=== PATIENT | male | born 1990 | race Caucasian/White ===

== ENCOUNTER 2023-05-23 16:43 | Inpatient (IN) ==
--- NOTE | 2023-05-23 17:03 | Emergency Department Note ---
Impression & Plan Acute hypoxemic respiratory failure, Pneumonia, Chest pain, Dyspnea, Acute dehydration ED Provider Note NAME: ЕКАТЕРИНА RIVERO AGE: 32 SEX: M : 1990 ARRIVES VIA: Walk-In INFORMANT: Patient, ED PROVIDER(S): Nicholas Morales MD CHIEF COMPLAINT: Shortness of breath, cough MEDICAL DECISION MAKING: Patient presents due to concern for worsening shortness of breath. The patient also did have some pain with coughing. Patient does not have any evidence of lower extremity edema calf pain or erythema no high risk red flag signs for DVT. IV was established and blood work was obtained. The patient was ordered magnesium DuoNeb steroids and IV fluids. Bio fire also ordered along with a chest x-ray. Patient's blood work shows a normal white count H&H and platelet count. The patient's kidney function is unremarkable. Patient sodium 135. Mild transaminitis with a bilirubin of 1.2 AST and ALT of 54 and 91 respectively. Troponin is not elevated. Urinalysis shows ketones and the patient did receive IV fluids. Bio fire negative. No obvious evidence of DVT on exam. Patient's history and physical exam most consistent with infectious etiology. Given the patient's hypoxia do believe the patient would benefit from admission at this time. I did speak the on-call hospitalist Dr. Butler and the patient was admitted to the medicine service. Critical Care: I have personally spent 45 minutes of critical care time in direct management of this patient. This includes bedside care, interpretation of diagnostic studies, and testing, discussion with consultants, patient, and family members, and other require inpatient management activities. This 45 minutes is in excess of all separately billable procedures. Discussion w/ other healthcare providers: Dr. Butler inpatient medicine service Prior /Outside records reviewed: Reviewed a primary care visit from May 14, 2023. The patient was seen by [facility] and diagnosed with a cough with productive sputum. Patient was to be started on Tessalon Perles Augmentin and Medrol Dosepak. Differential diagnosis: Reactive airway disease, pneumonia, pneumothorax, COPD, CHF, ACS, pulmonary embolism, musculoskeletal, GERD as well as other pathologies were considered. Diagnostics, as interpreted by me: ECG: Sinus tachycardia, rate of 104, normal intervals, normal axis no ST elevations. No significant change for comparison when June 10, 2019. Cardiac monitoring: An order was placed for continuous cardiac monitoring. The monitor shows a rate of 112 with tachycardic and regular rhythm. Patient was placed on pulse oximetry Medical decision rules: Curb 65 score Imaging studies: I informally interpreted the patient's chest x-ray which does not show obvious pneumonia or pneumothorax with formal report to follow. HPI: Patient presents due to concern for shortness of breath. Patient shortness of breath is gotten progressively worse over the last week week and a half. The patient was seen by his outpatient physician and prescribed steroids Augmentin and Tessalon Perles. The patient recently began taking Mucinex as well but does not had any significant improvement in symptoms. The patient does complain of dyspnea on exertion. No leg swelling or calf pain no history of DVT or PE. Patient reports that he does have a pending sleep study. Patient states that prior to this most recent bout of pneumonia the patient has not had steroids in some time but does have a history of asthma. Patient has not been using an inhaler. Patient does complain of some right-sided chest wall pain. Patient was concerned about coughing that may have caused a rib fracture. PAST MEDICAL HISTORY: See Below PAST SURGICAL HISTORY: See Below SOCIAL HISTORY: See Below HOME MEDICATIONS: See Below ALLERGIES: See Below VITALS: See Below PHYSICAL EXAMINATION: GENERAL: NAD, non-toxic. Nasal cannula in place. Wearing glasses EYE EXAM: Normal conjunctiva. PERRL, no anisocoria and EOM's grossly intact w/o pain. OROPHARYNX: Moist mucus membranes, grossly normal dentition. NECK: Supple, no nuchal rigidity, no adenopathy, non-tender. No signs of meningismus. FROM of the neck with good chin to chest and neck extension. No stridor. LUNGS: Wheezing and crackles noted normal chest wall mechanics. Chest: Reproducible right-sided chest wall pain HEART: Tachycardic and regular, no MRG. ABDOMEN: Abdomen soft, non-tender, no masses, no rebound or guarding. BACK: No CVA TTP. SKIN: No rashes and no bruising. UPPER EXTREMITIES: Upper extremities are grossly normal. LOWER EXTREMITIES: Grossly normal, no edema. Negative Homans' sign bilaterally. NEURO EXAM: A&O x3, cranial nerves II-XII grossly intact, normal speech, moves all 4 extremities. 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 History of wisdom tooth extraction Family History Aunt Breast cancer Mother Stroke Family history of reaction to anesthesia difficulty breathing after back surgery Grandmother Stroke Grandfather Stroke Other Diabetes Hypertension Denies family history of Ovarian cancer Prostate cancer Myocardial infarction Colorectal cancer Social History Smoking Status: Current every day smoker Tobacco Type: Cigarettes Cigarettes Per Day: 2-5 a day; Second Hand Exposure: Yes; Do You Dip or Chew Tobacco: No; Hx Alcohol Use: Yes ("a 6 pack of beer a night") Alcohol type: beer Alcohol Intake Frequency: 4 or More x per/Week Hx Substance Use: No Preferred Language: Lao Communication Ability: Effective Communication Ability Comment: has memory difficulties--but can sign own consent Visual Impairment: Limited Hearing Ability: Normal Fire Control Technician B Required: No Beliefs That Will Affect Care: None marital status: Single Current Living Situation: Parent current occupational status: unemployed Feels Safe at Home: Yes Childhood Exposure to Second-Hand Smoke: No Diet: regular caffeine: Yes during the past year weight has: remained stable Dental Care, Regularly: No Physical Activity Frequency: Does not Exercise Seatbelt Use: always Sunscreen Use: No Assistive Devices: Contacts and Glasses Allergies Allergies Allergy/AdvReac Type Severity Reaction Status Date / Time No Known Allergies Allergy Verified 05/23/23 18:01 Home Meds Home Medications Medication Instructions Recorded Confirmed acetaminophen 500 mg tablet 1,000 mg PO Q6H PRN Pain 02/23/21 05/23/23 (Tylenol Extra Strength) ibuprofen 200 mg tablet 400 mg PO Q6H PRN Pain 02/23/21 05/23/23 Previous Rx's Medication Instructions Recorded albuterol sulfate 90 mcg/actuation 2 puff inhalation QID PRN 07/31/21 aerosol inhaler shortness of breath or wheezing #8.5 grams sertraline 100 mg tablet 100 mg PO QPM #90 tabs 12/03/21 atenolol 25 mg tablet 25 mg PO QPM #30 tabs 08/21/22 omeprazole 40 mg capsule,delayed 40 mg PO QPM #90 caps 10/21/22 release amoxicillin 875 mg-potassium 1 tab PO BID #20 tabs 05/14/23 clavulanate 125 mg tablet benzonatate 100 mg capsule 100 mg PO TID PRN cough #30 caps 05/14/23 Results & Data (ED) Vital Signs Vital Signs - 24 hr 05/23/23 16:47 05/23/23 18:13 05/23/23 18:48 Temperature 36.7 C Temperature Source Temporal Artery Scan Pulse Rate 115 H 111 H Pulse Rate [Apical] Pulse Rhythm [Apical] Pulse Strength [Apical] Respiratory Rate 16 Respiratory Effort / Characteristics Non-Labored Spontaneous Respiratory Depth Normal Respiratory Pattern Blood Pressure 128/91 Blood Pressure [Left Arm] Blood Pressure Mean 103 Blood Pressure Mean [Left Arm] Pulse Oximetry 87 L 115 H Oxygen Delivery Method Room Air Nasal Cannula Oxygen Flow Rate 4 Sepsis Recent Fever Within 48 Hours No Sepsis New/Unexplained Change in Mental Status No Sepsis Action Taken by Nursing No Action Required 05/23/23 19:14 05/23/23 20:45 05/23/23 22:14 Temperature Temperature Source Pulse Rate Pulse Rate [Apical] 110 H 104 H 92 H Pulse Rhythm [Apical] Regular Regular Regular Pulse Strength [Apical] Normal Normal Normal Respiratory Rate 18 17 18 Respiratory Effort / Characteristics Non-Labored Spontaneous Non-Labored Spontaneous Non-Labored Spontaneous Respiratory Depth Normal Normal Normal Respiratory Pattern Regular Regular Regular Blood Pressure Blood Pressure [Left Arm] 160/100 H 146/95 H 145/97 H Blood Pressure Mean Blood Pressure Mean [Left Arm] 120 112 113 Pulse Oximetry 94 92 91 Oxygen Delivery Method Nasal Cannula Room Air Nasal Cannula Oxygen Flow Rate 4 4 Sepsis Recent Fever Within 48 Hours Sepsis New/Unexplained Change in Mental Status Sepsis Action Taken by Nursing 05/23/23 22:52 05/24/23 00:00 Temperature Temperature Source Pulse Rate 96 H Pulse Rate [Apical] 85 Pulse Rhythm [Apical] Pulse Strength [Apical] Respiratory Rate 18 Respiratory Effort / Characteristics Respiratory Depth Respiratory Pattern Blood Pressure Blood Pressure [Left Arm] 130/88 Blood Pressure Mean Blood Pressure Mean [Left Arm] 102 Pulse Oximetry 98 Oxygen Delivery Method Nasal Cannula Oxygen Flow Rate 4 Sepsis Recent Fever Within 48 Hours Sepsis New/Unexplained Change in Mental Status Sepsis Action Taken by Alf Medications Current Medication List: was personally reviewed by me Laboratory Data Attestation: I reviewed the patient's lab results. 05/23/23 18:03 05/23/23 18:03 Lab Results 05/23/23 05/23/23 05/23/23 Range/Units 18:03 20:36 Unknown WBC 8.41 (4.8-10.8) K/ul RBC 4.87 (4.70-6.10) M/uL Hgb 15.7 (14.0-18.0) g/dl Hct 45.1 (42.0-52.0) % MCV 92.6 (80.0-100.0) fL MCH 32.2 (25.0-34.0) pg MCHC 34.8 (32.0-36.0) g/dL RDW Std Deviation 44.5 (36.4-46.3) fL RDW Coeff of Doris 13.2 (11.5-14.5) % Plt Count 183 (130-400) K/uL MPV 11.3 (9.4-12.4) fL Immature Gran % (Auto) 0.6 % Neut % (Auto) 75.1 % Lymph % (Auto) 14.0 % Wilkes % (Auto) 7.3 % Eos % (Auto) 2.0 % Baso % (Auto) 1.0 % Neut # (Auto) 6.32 (1.40-6.50) K/uL Lymph # (Auto) 1.18 L (1.20-3.40) K/uL Wilkes # (Auto) 0.61 H (0.11-0.59) K/uL Eos # (Auto) 0.17 (0.00-0.50) K/uL Baso # (Auto) 0.08 (0.00-0.20) K/uL Immature Gran # (Auto) 0.05 (0.01-0.20) K/uL RBC Agglutinates 1+ PT 11.2 (9.0-12.0) Seconds INR 1.0 (0.9-1.1) APTT 26 (21-31) Seconds PTT Ratio 0.9 Sodium 135 L (136-145) mmol/L Potassium 3.7 (3.5-5.1) mmol/L Chloride 101 (98-107) mmol/L Carbon Dioxide 25 (21-32) mmol/L Anion Gap 9 (3-11) BUN 12 (6-23) mg/dl Creatinine 0.82 (0.6-1.4) mg/dl Est Cr Clr Drug Dosing 153.0 ml/min Est GFR ( Amer) 133.7 ml/min Est GFR (Non-Af Amer) 115.4 ml/min BUN/Creatinine Ratio 14.6 (10-20) Glucose 128 H (70-99(Fasting)) mg/dl Calcium 9.5 (8.6-10.3) mg/dl Magnesium 2.2 (1.7-2.4) mg/dl Total Bilirubin 1.2 H (0.2-1.0) mg/dl AST 54 H (13-39) U/L ALT 91 H (7-52) U/L Alkaline Phosphatase 87 (34-104) U/L Troponin I High Sens 4.1 (0-20) pg/ml B-Natriuretic Peptide 11 (0-100) pg/ml Total Protein 7.6 (6.0-8.3) gm/dl Albumin 4.0 (3.4-5.0) gm/dl Globulin 3.6 (2.5-4.0) gm/dl Albumin/Globulin Ratio 1.1 (0.9-2) Procalcitonin 0.07 (0-0.5) ng/ml Urine Color Yellow Urine Appearance Clear (Clear) Urine pH 5.5 (4.5-7.5) Ur Specific [place] 1.019 (1.000-1.030) Urine Protein Negative (Negative) Urine Glucose (UA) Negative (Negative) Urine Ketones 1+ H (Negative) Urine Blood Negative (Negative) Urine Nitrite Negative (Negative) Urine Bilirubin Negative (Negative) Urine Urobilinogen Negative (Negative) Ur Leukocyte Esterase Negative (Negative) Adenovirus (PCR) Not Detected (NotDetected) B. pertussis DNA (PCR) Not Detected (NotDetected) B.parapertussis DNA PCR Not Detected (NotDetected) C. pneumoniae DNA (PCR) Not Detected (NotDetected) Coronavirus OC43 (PCR) Not Detected (NotDetected) Coronavirus HKU1 (PCR) Not Detected (NotDetected) Coronavirus 229E (PCR) Not Detected (NotDetected) SARS-CoV-2 (PCR) Not Detected (NotDetected) Coronavirus NL63 (PCR) Not Detected (NotDetected) Human Metapneumovir PCR Not Detected (NotDetected) Influenza Type A (PCR) Not Detected (NotDetected) Influenza Type B (PCR) Not Detected (NotDetected) M. pneumoniae (PCR) Not Detected (NotDetected) Parainfluenza 1 (PCR) Not Detected (NotDetected) Parainfluenza 2 (PCR) Not Detected (NotDetected) Parainfluenza 3 (PCR) Not Detected (NotDetected) Parainfluenza 4 (PCR) Not Detected (NotDetected) RSV (PCR) Not Detected (NotDetected) Entero/Rhino (PCR) Not Detected (NotDetected) Administered Medications Discontinued Medications Albuterol (Albut/Ipratrop 3mg/0.5mg Neb 3 Ml Vial) 12 ml INH ONE STA Stop: 05/23/23 17:18 Last Admin: 05/23/23 18:05 Dose: 12 ml Documented By: YAMILE Amoxicillin/Clavulanate Potassium (Amoxicillin/Clavulanate 875 Mg Tab) 1 tab PO NOW ONE; Protocol Stop: 05/23/23 21:28 Last Admin: 05/23/23 21:59 Dose: 1 tab Documented By: DONNIE Atenolol (Atenolol 25 Mg Tablet) 25 mg PO NOW ONE Stop: 05/23/23 19:54 Last Admin: 05/23/23 20:29 Dose: 25 mg Documented By: DONNIE Hydromorphone HCl (Hydromorphone Inj 0.5 Mg/0.5 Ml Syr) 0.5 mg IV NOW STA Stop: 05/23/23 20:19 Last Admin: 05/23/23 20:42 Dose: 0.5 mg Documented By: DONNIE Sodium Chloride (Nss) 1,000 mls @ 999 mls/hr IV .Q1H1M JUJU Stop: 05/23/23 18:30 Last Infusion: 05/23/23 19:20 Dose: Infused Documented By: Admin: 05/23/23 18:11 Dose: 999 mls/hr Documented By: DONNIE Magnesium Sulfate/Dextrose (Magnesium Sulfate / D5w) 1 gm in 100 mls @ 300 mls/hr IV Q20M JUJU Stop: 05/23/23 18:09 Last Infusion: 05/23/23 20:31 Dose: Infused Documented By: Admin: 05/23/23 19:20 Dose: 300 mls/hr Documented By: Infusion: 05/23/23 18:29 Dose: Infused Documented By: Admin: 05/23/23 18:09 Dose: 300 mls/hr Documented By: DONNIE Ioversol (Optiray 320 125ml) 116 ml IV ONCE ONE Stop: 05/23/23 21:51 Last Admin: 05/23/23 21:50 Dose: 116 ml Documented By: SALVADOR Ketorolac Tromethamine (Ketorolac Tromethamine 15 Mg/Ml Vial) 10 mg IV NOW ONE Stop: 05/23/23 19:13 Last Admin: 05/23/23 19:16 Dose: 10 mg Documented By: DONNIE Lidocaine (Lidocaine 5% 1 Patch) 1 patch TD NOW STA Stop: 05/23/23 20:21 Last Admin: 05/23/23 20:41 Dose: 1 patch Documented By: DONNIE Methylprednisolone (Methylprednisolone 125 Mg/2 Ml Vial) 125 mg IV NOW STA Stop: 05/23/23 17:18 Last Admin: 05/23/23 18:09 Dose: 125 mg Documented By: DONNIE Sertraline HCl (Sertraline Hcl 100 Mg Tablet) 100 mg PO NOW ONE Stop: 05/23/23 19:55 Last Admin: 05/23/23 20:29 Dose: 100 mg Documented By: DONNIE Imaging Data Radiologist's Impression: Chest X-Ray 05/23/23 17:17 XR chest 1V portable HISTORY: 32 years-old Male Dyspnea acute shortness of breath COMPARISON: 05/14/2023 TECHNIQUE: AP view of the chest FINDINGS: Cardiomediastinal and hilar silhouettes are unchanged. No pneumothorax, pleural effusion or lobar airspace consolidation. Previously questioned right basilar opacities are not definitively seen. The bones appear grossly intact. IMPRESSION: No acute process of the chest. ACT 112: Negative or not required by law. The above report was generated using voice recognition software. It may contain grammatical, syntax or spelling errors. Electronically signed by: Paul Higuera M.D. 05/23/2023 5:42 PM Chest CTA 05/23/23 21:07 Exam(s): CTA CHEST IV Amt: 116ML OPTIRAY 320 EXAM: CT Angiography Chest With Intravenous Contrast CLINICAL HISTORY: Reason for exam: PE. TECHNIQUE: Axial computed tomographic angiography images of the chest with intravenous contrast. Automated exposure control was utilized for the study. A dose lowering technique was utilized adhering to the principles of ALARA. MIP reconstructed images were created and reviewed. COMPARISON: No relevant prior studies available. FINDINGS: Pulmonary arteries: Adequate pulmonary artery opacification. Normal caliber main pulmonary artery. No evidence of acute pulmonary embolism. Aorta: No acute findings. No thoracic aortic aneurysm or dissection. Lungs: Bilateral bronchial wall thickening. Widespread centrilobular nodules and tree-in-bud opacities in the right lower lobe. Multiple subpleural pulmonary micronodules measuring 2 mm in the right middle lobe (series 2, image 35), 5 mm in the left lower lobe (series 2, image 46), 3 mm in the left lower lobe (series 2, image 60); per Fleischner Society guidelines, no follow-up is required. Subsegmental atelectasis at the bilateral lung bases. No pulmonary mass. Pleural space: Unremarkable. No pleural effusion or pneumothorax. Heart: Unremarkable. No cardiomegaly. No significant pericardial effusion. No evidence of RV dysfunction. Bones/joints: Acute nondisplaced fracture lateral right rib 7. Osseous structures otherwise intact. No dislocation. Soft tissues: Unremarkable. Lymph nodes: Unremarkable. No enlarged lymph nodes. IMPRESSION: 1. Extensive centrilobular nodules and tree-in-bud opacities in the right lower lobe consistent with infectious or inflammatory bronchiolitis/small airways disease. 2. Acute nondisplaced fracture lateral right rib 7. 3. No evidence of acute pulmonary embolism. Electronically signed by: Patricio Flores M.D. 05/23/23 23:09 PM Discharge Plan Visit Data Chief Complaint: Flank Pain Stated Complaint: PNEMONIA, SHARP RT FLANK PAIN, BACK PAIN, RIB PAIN ED Provider: Nicholas Morales Discharge Problem: Acute hypoxemic respiratory failure, Pneumonia, Chest pain, Dyspnea, Acute dehydration Forms Stand Alone Forms: [employer] Prescriptions Prescriptions: No Action sertraline 100 mg tablet 100 mg PO QPM Qty: 90 3RF atenolol 25 mg tablet 25 mg PO QPM Qty: 30 0RF omeprazole 40 mg capsule,delayed release(DR/EC) 40 mg PO QPM Qty: 90 1RF amoxicillin-pot clavulanate 875-125 mg tablet 1 tab PO BID Qty: 20 0RF Rx Instructions: STARTED 05/14/23 FOR 10 DAYS benzonatate 100 mg capsule 100 mg PO TID PRN (Reason: cough) Qty: 30 1RF albuterol sulfate 90 mcg/actuation HFA aerosol inhaler 2 puff inhalation QID PRN (Reason: shortness of breath or wheezing) Qty: 8.5 3RF acetaminophen [Tylenol Extra Strength] 500 mg Tablet 1,000 mg PO Q6H PRN (Reason: Pain) ibuprofen 200 mg Tablet 400 mg PO Q6H PRN (Reason: Pain) Referrals Referrals: Clemente Cui MD [Primary Care Provider] - Discharge Problem: Pneumonia Qualifiers: Pneumonia type: due to unspecified organism Laterality: right Lung location: l ower lobe of lung Qualified Code(s): J18.9 - Pneumonia, unspecified organism Chest pain Qualifiers: Chest pain type: unspecified Qualified Code(s): R07.9 - Chest pain, unspecified Dyspnea Qualifiers: Dyspnea type: shortness of breath Qualified Code(s): R06.02 - Shortness of breath
[2023-05-23] MEDS ORDERED: methylPREDNISolone 125 MG/2 ML VIAL IV STA (17:17)
[2023-05-23] MEDS ORDERED: ALBUT/IPRATROP 3MG/0.5MG NEB 3 ML VIAL INH STA (17:17)
[2023-05-23] MEDS ORDERED: SODIUM CHLORIDE 0.9% 1,000 ML IV SCH (17:30)
--- NOTE | 2023-05-23 17:43 | XRay Report ---
XR chest 1V portable HISTORY: 32 years-old Male Dyspnea acute shortness of breath COMPARISON: 05/14/2023 TECHNIQUE: AP view of the chest FINDINGS: Cardiomediastinal and hilar silhouettes are unchanged. No pneumothorax, pleural effusion or lobar air space consolidation. Previously questioned right basilar opacities are not definitively seen. The bon es appear grossly intact. IMPRESSION: No acute process of the chest. ACT 112: Negative or not required by law. The above report was generated using voice recognition software. It may contain grammatical, syntax o r spelling errors. Electronically signed by: Paul Higuera M.D. 05/23/2023 5:42 PM
[2023-05-23] MEDS: MAGNESIUM SULFATE / D5W 1 GM/100 ML BAG IV SCH ×2 (18:09→19:20)
[2023-05-23 18:50] LABS: Albumin Globulin Ratio 1.1 (0.9-2); BUN Creatinine Ratio 14.6 (10-20); Bilirubin,Total 1.2 mg/dl (0.2-1.0); Calcium 9.5 mg/dl (8.6-10.3); Est GFR (African American) 133.7 ml/min; Est GFR (Non-African American) 115.4 ml/min; Globulin 3.6 gm/dl (2.5-4.0); Magnesium 2.2 mg/dl (1.7-2.4); Potassium 3.7 mmol/L (3.5-5.1); Total Protein 7.6 gm/dl (6.0-8.3)
[2023-05-23 18:54] LABS: Troponin I High Sensitivity 4.1 pg/ml (0-20)
[2023-05-23 18:59] LABS: Partial Thromboplastin Ratio 0.9; Partial Thromboplastin Time 26 Seconds (21-31); Prothrombin Time 11.2 Seconds (9.0-12.0)
[2023-05-23] MEDS ORDERED: KETOROLAC TROMETHAMINE 15 MG/ML VIAL IV ONE (19:12)
--- NOTE | 2023-05-23 19:19 | History & Physical Report ---
Date of Service May 23, 2023 Assessment & Plan (1) Shortness of breath: Plan: Worsening SOB and productive cough since 04/20; Mother had COVID in April; negative home COVID test in April, however symptoms have lingered Outpatient CXR on 05/14 showed PNA; patient was given prednisone taper and Augmentin 875-125 mg p.o. BID x 10 days Coughing on 05/23 led to severe, acute onset of right-sided flank pain Hypoxic on ED arrival 87%; SpO2 93% on 4L NC CXR today showed NAF; bones grossly intact No leukocytosis; afebrile BioFire negative Procalcitonin WNL BNP WNL Chest CTA revealed no evidence of pulmonary embolism, but noted: Acute non-displaced fracture lateral right rib 7 Extensive centrilobualr nodules and tree-in-bud opacities in the RLL consistent with infectious or inflammatory airway disease Continuous telemetry monitoring Continuous pulse oximetry Supplemental oxygen as needed to maintain SpO2 >94% Patient was set to finish course of Augmentin 875-125mg p.o. BID on 05/23; last dose in the ED Given chest CTA, will continue empiric abx w/ IV Ceftriaxone and Azithromycin DuoNeb 3 mL QIDR for expiratory wheezing Continue benzonatate TID as needed for cough Promote good pulmonary hygiene with incentive spirometry and flutter valve QID Acetaminophen p.o. as needed for pain/fever Dilaudid IV q4h as needed for breakthrough pain Apply lidocaine 5% patch to right rib cage daily A.m. CBC, BMP, Mag, LFTs (2) Right flank pain: Plan: Developed after coughing on 05/23 Patient came to the ED thinking he might have cracked a rib Pain management (as above) (3) Elevated transaminase level: Plan: AST mildly elevated at 54 ALT mildly elevated at 91 Alk phos WNL PT/INR WNL ?Viral; repeat LFTs (4) Asthma: Plan: DuoNeb (as above) (5) Depression with anxiety: Plan: Continue sertraline QPM (6) Hypertension: Plan: Continue atenolol QPM (7) Esophageal reflux: Plan: Continue omeprazole, or Protonix equivalent QPM Plan Disposition: Admit to [facility] Full code Regular diet VTE PPx: Lovenox 40mg SQ q24h History of Present Illness Chief Complaint: SOB, R flank/rib pain Primary Care Provider: Clemente Cui MD Ifeanyi is a 32-year-old male with PMH of asthma, HTN, depression, anxiety, and esophageal reflux. He presented for right flank pain on 05/23 and worsening SOB over the past month. Patient's mother is at the bedside and provides additional history. Mom tested positive for COVID on 04/16. Per mom, the patient deve loped cough and cold symptoms around Bailey time, but tested negative for COVID at this time. His symptoms continue to linger. On 05/14, patient had an outpatient CXR that showed pneumonia, and he was started on a prednisone taper and Augmentin 875-125mg x 10 days. He has been using a pulse ox at home, which has been measuring low 90% range. Patient does not use supplemental oxygen at home. He has been taking his mother's albuterol nebulizer 23 times per day, which she reports helps. He is also been using Mucinex dm for cough. Breathing is worse when he lies flat. Of note, the patient developed right-sided back and flank pain on 05/22, then heard a "pop" while coughing on 05/23 and thought he might have cracked a rib. No radiation up the back or down to the legs. Patient reports that the right rib pain is worse with coughing. He took ibuprofen for it yesterday, but nothing today. He did not take any of his regular medications today; no recent change in medications. He endorses alcohol use, but nothing within the past week. He also endorses mild tobacco cigarette smoking; 1-2 cigarettes per day on occasion. Patient is mildly tachycardic at 110 bpm, with SpO2 94% on 4L NC at time of admission. ED course: DuoNeb 12 mL Magnesium sulfate 1 g IV NSS 1000 mL IV Solu-Medrol 125 mg IV ROS: Patient endorses productive cough (clear sputum production), body aches, ZIMMERMAN, ri ght flank/rib pain, and diarrhea (after starting Augmentin). Patient denies fever, chills, night-sweats, rashes, tick bites, chest pain, chest palpitations, SOB at rest, hemoptysis, pleuritic CP, abdominal pain, N/V, dysuria, burning with urination, or numbness/tingling/redness/pain in the legs or arms. Allergies Allergy/AdvReac Type Severity Reaction Status Date / Time No Known Allergies Allergy Verified 05/23/23 18:01 Home Medications Medication Instructions Recorded Confirmed Type acetaminophen 500 mg tablet 1,000 mg PO Q6H PRN Pain 02/23/21 05/23/23 History (Tylenol Extra Strength) ibuprofen 200 mg tablet 400 mg PO Q6H PRN Pain 02/23/21 05/23/23 History albuterol sulfate 90 mcg/actuation 2 puff inhalation QID PRN 07/31/21 05/23/23 Rx aerosol inhaler shortness of breath or wheezing #8.5 grams sertraline 100 mg tablet 100 mg PO QPM #90 tabs 12/03/21 05/23/23 Rx atenolol 25 mg tablet 25 mg PO QPM #30 tabs 08/21/22 05/23/23 Rx omeprazole 40 mg capsule,delayed 40 mg PO QPM #90 caps 10/21/22 05/23/23 Rx release amoxicillin 875 mg-potassium 1 tab PO BID #20 tabs 05/14/23 05/23/23 Rx clavulanate 125 mg tablet benzonatate 100 mg capsule 100 mg PO TID PRN cough #30 caps 05/14/23 05/23/23 Rx Past Med/Surg History Medical History (Updated 05/23/23 @ 21:17 by Christophe Brown PA-C) Asthma Memory difficulties Color blindness Tachycardia History of COVID-19 diagnosed 04/2021--no issues now Wheezing inhaler prn Hypertension Fatty liver Hemorrhoids Adjustment disorder with mixed anxiety and depressed mood Esophageal reflux Surgical History 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 History of wisdom tooth extraction Family History Aunt Breast cancer Mother Stroke Family history of reaction to anesthesia Grandmother Stroke Grandfather Stroke Other Diabetes Hypertension Denies family history of Ovarian cancer Prostate cancer Myocardial infarction Colorectal cancer Social History Smoking Status: Current every day smoker Tobacco Type: Cigarettes Cigarettes Per Day: 2-5 a day; Second Hand Exposure: Yes; Do You Dip or Chew Tobacco: No; Hx Alcohol Use: Yes ("a 6 pack of beer a night") Alcohol type: beer Alcohol Intake Frequency: 4 or More x per/Week Hx Substance Use: No Preferred Language: Gibralt[place] Communication Ability: Effective Communication Ability Comment: has memory difficulties--but can sign own consent Visual Impairment: Limited Hearing Ability: Normal Support Manager Required: No Beliefs That Will Affect Care: None marital status: Single Current Living Situation: Parent current occupational status: unemployed Feels Safe at Home: Yes Childhood Exposure to Second-Hand Smoke: No Diet: regular caffeine: Yes during the past year weight has: remained stable Dental Care, Regularly: No Physical Activity Frequency: Does not Exercise Seatbelt Use: always Sunscreen Use: No Assistive Devices: Contacts and Glasses Review of Systems Review of Systems: See HPI above Physical Exam Physical Exam: General: Acute right flank pain and mild respiratory distress; flank pain is exacerbated by any kind of movement; patient is cooperative; SpO2 93% on 4L NC HEENT: normocephalic, atraumatic; no scleral icterus; PERRLA w/ EOMs intact; moist mucus membrane; vision and hearing grossly intact Neck: supple; no lymphadenopathy; trachea midline Skin: warm, without signs of tenting; diaphoretic; no cyanosis; no rashes, bruising, lesions, or erythema noted CV: chest wall NTP; RRR; S1/S2 normal; no murmurs/rubs/gallops; pulses intact and symmetric at radial, DP, and PT Lungs: Mild respiratory distress; symmetrical chest wall expansion; expiratory wheezing across all lung pantoja, but worse on the left ABD: Soft; right flank is TTP just under the anterior lateral rib cage; no signs of bruising; BS present; no rebound/guarding; distention secondary to body habitus MSK: no tics or fasciculations; no edema noted in the LEs b/l, nonerythematous Neuro: A&Ox3; normal mood and affect; fluent speech; no focal deficits; sensation grossly intact in the LEs b/l Results & Data Results & Data Vital Signs (Past 12 Hours) Vital Signs Temp Pulse Pulse Resp BP BP Pulse Ox 05/23/23 19:14 110 H 18 160/100 H 94 05/23/23 18:48 111 H 05/23/23 18:13 115 H 05/23/23 16:47 36.7 C 115 H 16 128/91 87 L O2 Del Method O2 Flow Rate 05/23/23 19:14 Nasal Cannula 4 05/23/23 18:48 05/23/23 18:13 Nasal Cannula 4 05/23/23 16:47 Room Air Laboratory Results Abnormal lab results 05/23/23 Range/Units 18:03 Sodium 135 L (136-145) mmol/L Glucose 128 H (70-99(Fasting)) mg/dl Total Bilirubin 1.2 H (0.2-1.0) mg/dl AST 54 H (13-39) U/L ALT 91 H (7-52) U/L Diagnostic Findings Chest X-Ray 05/23/23 17:17 XR chest 1V portable HISTORY: 32 years-old Male Dyspnea acute shortness of breath COMPARISON: 05/14/2023 TECHNIQUE: AP view of the chest FINDINGS: Cardiomediastinal and hilar silhouettes are unchanged. No pneumothorax, pleural effusion or lobar airspace consolidation. Previously questioned right basilar opacities are not definitively seen. The bones appear grossly intact. IMPRESSION: No acute process of the chest. ACT 112: Negative or not required by law. The above report was generated using voice recognition software. It may contain grammatical, syntax or spelling errors. Electronically signed by: Paul Higuera M.D. 05/23/2023 5:42 PM Exam(s): CTA CHEST IV Amt: 116ML OPTIRAY 320 EXAM: CT Angiography Chest With Intravenous Contrast CLINICAL HISTORY: Reason for exam: PE. TECHNIQUE: Axial computed tomographic angiography images of the chest with intravenous contrast. Automated exposure control was utilized for the study. A dose lowering technique was utilized adhering to the principles of ALARA. MIP reconstructed images were created and reviewed. COMPARISON: No relevant prior studies available. FINDINGS: Pulmonary arteries: Adequate pulmonary artery opacification. Normal caliber main pulmonary artery. No evidence of acute pulmonary embolism. Aorta: No acute findings. No thoracic aortic aneurysm or dissection. Lungs: Bilateral bronchial wall thickening. Widespread centrilobular nodules and tree-in-bud opacities in the right lower lobe. Multiple subpleural pulmonary micronodules measuring 2 mm in the right middle lobe (series 2, image 35), 5 mm in the left lower lobe (series 2, image 46), 3 mm in the left lower lobe (series 2, image 60); per Fleischner Society guidelines, no follow-up is required. Subsegmental atelectasis at the bilateral lung bases. No pulmonary mass. Pleural space: Unremarkable. No pleural effusion or pneumothorax. Heart: Unremarkable. No cardiomegaly. No significant pericardial effusion. No evidence of RV dysfunction. Bones/joints: Acute nondisplaced fracture lateral right rib 7. Osseous structures otherwise intact. No dislocation. Soft tissues: Unremarkable. Lymph nodes: Unremarkable. No enlarged lymph nodes. IMPRESSION: 1. Extensive centrilobular nodules and tree-in-bud opacities in the right lower lobe consistent with infectious or inflammatory bronchiolitis/small airways disease. 2. Acute nondisplaced fracture lateral right rib 7. 3. No evidence of acute pulmonary embolism. Electronically signed by: Patricio Flores M.D. 05/23/23 23:09 PM Dictated: 05/23/232308 Transcribed: 05/23/232308 Code Status & VTE Plan Code Status Full code VTE Prophylaxis Plan VTE Prophylaxis will be ordered: Yes Supervising Physician Co-Signing Physician Notes Patient seen and examined, chart reviewed, case discussed with CLAY Brown and I agree with the assessment and plan as above. In brief, patient is a 32yo male with history of asthma, HTN, depression and GERD presenting with right sided pain and ongoing cough/SOB. Patient's symptoms began around mid-April after his mother had Covid-19. Patient took a home Covid test which was NEGATIVE. He has had ongoing cough and congestion as well as fatigue. He was seen by his PCP on 05/14/23 and started on Augmentin and a Prednisone taper. Developed severe right sided back/flank pain on 05/22 after coughing. Reports feeling a "pop". Patient hypoxic in the ER. Presently on 4L NC saturating 91% Ill in appearance, answering questions appropriately SKin - warm, dry, intact, no rashes or lesions HEENT - MMM, Neck supple Heart - +S1/S2, regular, tachycardic, no m/r/g Lungs - +Crackles in RLL, mild end-expiratory wheezing. Severe tenderness to palpation right side. No crepitus Abd - +BS, soft, NT/ND Ext - warm, well perfused Labs and images reviewed CXR with no obvious PNA CT chest with RLL PNA and rib fracture Assessment/Plan -Will continue antibiotics for now - Ceftriaxone and Azithromycin. Patient has completed a course of Augmentin. He has a normal WBC count and procalcitonin -Duonebs and Albuterol -Pain control for rib fracture -Remainder as above PG Care Time/CCT Total # of Minutes Spent Total Time Spent with Patient: Total time spent is greater than 50% in coordination of care (as documented) at patient's floor/unit and/or counseling patient: Coding [place] [address] INT INP/OBS CARE 3/75MIN Patient Type Established Medical Decision Making High Complexity Diagnoses Shortness of breath R06.02 Right flank pain R10.9 Elevated transaminase level R74.01 Asthma J45.909 Depression with anxiety F41.8 Hypertension I10 Esophageal reflux K21.9
[2023-05-23 19:23] LABS: Adenovirus PCR Not Detected (NotDetected); Bordetella parapertussis PCR Not Detected (NotDetected); Bordetella pertussis PCR Not Detected (NotDetected); Chlamydia pneumoniae PCR Not Detected (NotDetected); Coronavirus 229E PCR Not Detected (NotDetected); Coronavirus CoV-2 (COVID19)PCR Not Detected (NotDetected); Coronavirus HKU1 PCR Not Detected (NotDetected); Coronavirus NL63 PCR Not Detected (NotDetected); Coronavirus OC43PCR Not Detected (NotDetected); Human Metapneumovirus PCR Not Detected (NotDetected); Influenza A PCR Not Detected (NotDetected); Influenza B PCR Not Detected (NotDetected); Mycoplasma pneumoniae PCR Not Detected (NotDetected); Parainfluenza Virus 1 PCR Not Detected (NotDetected); Parainfluenza Virus 2 PCR Not Detected (NotDetected); Parainfluenza Virus 3 PCR Not Detected (NotDetected); Parainfluenza Virus 4 PCR Not Detected (NotDetected); Respiratory Syncytial VirusPCR Not Detected (NotDetected); Rhinovirus/Enterovirus PCR Not Detected (NotDetected)
[2023-05-23 19:27] LABS: Hematocrit (blood only) 45.1 % (42.0-52.0); Hemoglobin 15.7 g/dl (14.0-18.0); Mean Corpuscular Hemoglobin 32.2 pg (25.0-34.0); Mean Corpuscular Hgb Conc 34.8 g/dL (32.0-36.0); Mean Corpuscular Volume 92.6 fL (80.0-100.0); Mean Platelet Volume 11.3 fL (9.4-12.4); Platelet Count 183 K/uL (130-400); RDW Coefficient of Variation 13.2 % (11.5-14.5); RDW Standard Deviation 44.5 fL (36.4-46.3); Red Blood Count 4.87 M/uL (4.70-6.10); White Blood Count 8.41 K/ul (4.8-10.8)
[2023-05-23 19:28] LABS: Agglutinated RBC 1+; Basophils # (auto) 0.08 K/uL (0.00-0.20); Eosinophils # (auto) 0.17 K/uL (0.00-0.50); Immature Granulocytes # (auto) 0.05 K/uL (0.01-0.20); Immature Granulocytes % (auto) 0.6 %; Lymphocytes # (auto) 1.18 K/uL (1.20-3.40); Monocytes # (auto) 0.61 K/uL (0.11-0.59); Monocytes % (auto) 7.3 %; Neutrophils # (auto) 6.32 K/uL (1.40-6.50); Neutrophils % (auto) 75.1 %
[2023-05-23] MEDS ORDERED: ATENOLOL 25 MG TABLET PO ONE (19:53)
[2023-05-23] MEDS ORDERED: SERTRALINE HCL 100 MG TABLET PO ONE (19:54)
[2023-05-23 20:08] LABS: Appearance Urine Clear (Clear); Bilirubin Urine Negative (Negative); Blood Urine Negative (Negative); Color Urine Yellow; Glucose Urine UA Negative (Negative); Ketones Urine 1+ (Negative); Leukocyte Esterase Urine Negative (Negative); Nitrite Urine Negative (Negative); Protein Urine Negative (Negative); Specific Gravity Urine 1.019 (1.000-1.030); Urobilinogen Urine Negative (Negative); pH Urine 5.5 (4.5-7.5)
[2023-05-23] MEDS ORDERED: HYDROmorphone INJ 0.5 MG/0.5 ML SYR IV STA (20:18)
[2023-05-23] MEDS ORDERED: LIDOCAINE 5% 1 PATCH TD STA (20:20)
[2023-05-23] MEDS ORDERED: AMOXICILLIN/CLAVULANATE 875 MG TAB PO ONE (21:27)
[2023-05-23] MEDS ORDERED: OPTIRAY 320 125ml IV ONE (21:50)
--- NOTE | 2023-05-23 23:10 | CT Scan Report ---
Exam(s): CTA CHEST IV Amt: 116ML OPTIRAY 320 EXAM: CT Angiography Chest With Intravenous Contrast CLINICAL HISTORY: Reason for exam: PE. TECHNIQUE: Axial computed tomographic angiography images of the chest with intravenous contrast. Automated exposure control was utilized for the study. A dose lowering technique was utilized adhering to the principles of ALARA. MIP reconstructed images were created and reviewed. COMPARISON: No relevant prior studies available. FINDINGS: Pulmonary arteries: Adequate pulmonary artery opacification. Normal caliber main pulmonary artery. No evidence of acute pulmonary embolism. Aorta: No acute findings. No thoracic aortic aneurysm or dissection. Lungs: Bilateral bronchial wall thickening. Widespread centrilobular nodules and tree-in-bud opacities in the right lower lobe. Multiple subpleural pulmonary micronodules measuring 2 mm in the right middle lobe (series 2, image 35), 5 mm in the left lower lobe (series 2, image 46), 3 mm in the left lower lobe (series 2, image 60); per Fleischner Society guidelines, no follow-up is required. Subsegmental atelectasis at the bilateral lung bases. No pulmonary mass. Pleural space: Unremarkable. No pleural effusion or pneumothorax. Heart: Unremarkable. No cardiomegaly. No significant pericardial effusion. No evidence of RV dysfunction. Bones/joints: Acute nondisplaced fracture lateral right rib 7. Osseous structures otherwise intact. No dislocation. Soft tissues: Unremarkable. Lymph nodes: Unremarkable. No enlarged lymph nodes. IMPRESSION: 1. Extensive centrilobular nodules and tree-in-bud opacities in the right lower lobe consistent with infectious or inflammatory bronchiolitis/small airways disease. 2. Acute nondisplaced fracture lateral right rib 7. 3. No evidence of acute pulmonary embolism. Electronically signed by: Patricio Flores M.D. 05/23/23 23:09 PM
[2023-05-24] MEDS ORDERED: BENZONATATE 100 MG CAPSULE PO PRN (01:28)
[2023-05-24] MEDS ORDERED: AZITHROMYCIN 500 MG in DEXTROSE 5% 250 ML IV STA (01:28)
[2023-05-24] MEDS ORDERED: ACETAMINOPHEN 325 MG TAB PO PRN (01:28)
[2023-05-24] MEDS ORDERED: ALBUTEROL 0.5% NEB SOLN 2.5 MG/0.5 ML VIAL NEB PRN (01:28)
[2023-05-24] MEDS ORDERED: ONDANSETRON INJ 2 MG/ML 2 ML VIAL IV PRN (01:28)
[2023-05-24] MEDS ORDERED: HYDROmorphone INJ 1 MG/ML SYRINGE IV PRN (01:28)
[2023-05-24] MEDS: HYDROmorphone INJ 0.5 MG/0.5 ML SYR IV PRN ×2 (02:14→08:18)
[2023-05-24] MEDS: PANTOprazole 40 MG TAB PO SCH ×2 (02:51→21:08)
[2023-05-24] MEDS: cefTRIAXone SODIUM 2,000 MG in DEXTROSE 5 % MINI-B 50 ML IV SCH (02:51)
--- NOTE | 2023-05-24 07:07 | Electrocardiogram Report ---
Test Reason : Blood Pressure : / mmHG Vent. Rate : 104 BPM Atrial Rate : 104 BPM P-R Int : 164 ms QRS Dur : 082 ms QT Int : 330 ms P-R-T Axes : 035 008 040 degrees QTc Int : 433 ms Sinus tachycardia Nonspecific T wave abnormality Abnormal ECG When compared with ECG of 10-JUN-2019 20:56, No significant change was found Confirmed by Clemente Castano ([id number]) on 05/24/2023 7:07:21 AM Referred By: REFERRED SELF Confirmed By:Dale Castano
[2023-05-24] MEDS: ALBUT/IPRATROP 3MG/0.5MG NEB 3 ML VIAL NEB SCH ×4 (07:27→19:27)
[2023-05-24] MEDS: ENOXAPARIN INJ 40 MG/0.4 ML SYR SQ SCH (08:19)
[2023-05-24 09:57] LABS: Basophils # (auto) 0.02 K/uL (0.00-0.20); Basophils % (auto) 0.2 %; Hematocrit (blood only) 43.7 % (42.0-52.0); Hemoglobin 15.8 g/dl (14.0-18.0); Immature Granulocytes # (auto) 0.08 K/uL (0.01-0.20); Immature Granulocytes % (auto) 0.6 %; Lymphocytes # (auto) 0.91 K/uL (1.20-3.40); Lymphocytes % (auto) 7.4 %; Mean Corpuscular Hemoglobin 34.2 pg (25.0-34.0); Mean Corpuscular Hgb Conc 36.2 g/dL (32.0-36.0); Mean Corpuscular Volume 94.6 fL (80.0-100.0); Monocytes # (auto) 0.43 K/uL (0.11-0.59); Monocytes % (auto) 3.5 %; Neutrophils # (auto) 10.91 K/uL (1.40-6.50); Neutrophils % (auto) 88.3 %; Platelet Count 233 K/uL (130-400); RDW Coefficient of Variation 13.2 % (11.5-14.5); RDW Standard Deviation 44.4 fL (36.4-46.3); Red Blood Count 4.62 M/uL (4.70-6.10); White Blood Count 12.35 K/ul (4.8-10.8)
[2023-05-24] MEDS: guaiFENesin 600 MG TABCR PO SCH ×2 (10:02→21:07)
[2023-05-24] MEDS: LIDOCAINE 5% 1 PATCH TD SCH (10:03)
[2023-05-24 10:08] LABS: Albumin Level 4.4 gm/dl (3.4-5.0); BUN Creatinine Ratio 12.5 (10-20); Bilirubin Direct 0.2 mg/dl (0-0.2); Bilirubin,Total 0.8 mg/dl (0.2-1.0); Calcium 9.5 mg/dl (8.6-10.3); Creatinine Clr Calc Pharmacy 193.9 ml/min; Est GFR (African American) 148.1 ml/min; Est GFR (Non-African American) 127.7 ml/min; Magnesium 2.6 mg/dl (1.7-2.4)
[2023-05-24] MEDS ORDERED: HYDROmorphone INJ 0.5 MG/0.5 ML SYR IV PRN (14:47)
--- NOTE | 2023-05-24 14:49 | Hospitalist Progress Note ---
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, typically around locker rooms/pool/etc) send sputum cx resp biofire neg - noted cont NC O2 and supportive care (2) Fracture of rib: Plan: #7 on right likely happened following a coughing spell cont dilaudid prn add lidoderm add toradol 30mg IV q6h x 4 doses check 25-OH vit D level am (3) Elevated transaminase level: Plan: AST mildly elevated at 54 - now normal ALT mildly elevated at 91 - now in the 70s Alk phos WNL PT/INR WNL h/o abnormal LFTs in the past per old labs h/o fatty liver trend (4) Asthma: Plan: cont duonebs qid scheduled cont flutter & IS he mentions he uses albuterol 2-3 x's each week on a typical week should be on a controller agent consider inhaled corticosteroid consider PO prednisone if any significant bronchospastic component occurs while here (5) Depression with anxiety: Plan: Continue sertraline (6) Hypertension: Plan: Continue atenolol (7) Esophageal reflux: Plan: Cont ppi Plan VTE PPx: Lovenox 40mg SQ q24h progressing Admission and Anticipated Discharge Date Admission Date: May 23, 2023 Subjective patient overall feels better today less pain over right chest wall but [id number] he still has the pain still with cough mainly dry less dyspnea less wheezing pt lives with his mother and she had lab-test confirmed COVID in April several days after she got sick he started to have fatigue, body aches, and cough symptoms lasted at least 1-2 weeks he never tested + for COVID but only tested 1x denies any dysphagia 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 no smoking no recent travel Review of Systems Review of Systems: gen - no fevers or chills cv - right sided chest discomfort with moving wrong or forceful coughing pulm - some wheezing, some ZIMMERMAN GI - no abd pain or N/V Physical Exam Physical Exam: gen - obese, coughing, grabs right flank region when he moves around on the bed neck - no JVD mouth - MMM heart - RRR, s1 s2 lungs - rales R base, scant end-exp wheezes, no increased work of breathing abd - soft nt nd BS+ ext - no edema, pulses 2+ b/l psych - a/o x 3 Results & Data Results & Data Vital Signs (Past 12 Hours) Vital Signs Temp Pulse Pulse Resp BP Pulse Ox O2 Del Method 05/24/23 11:58 36.8 C 66 16 143/56 H 95 Nasal Cannula 05/24/23 10:54 88 18 96 Nasal Cannula 05/24/23 09:48 Room Air 05/24/23 07:42 36.6 C 76 16 121/77 97 Nasal Cannula 05/24/23 07:39 90 05/24/23 07:28 83 18 96 Nasal Cannula 05/24/23 05:28 36.8 C 84 16 124/78 98 Nasal Cannula 05/24/23 03:39 93 H O2 Flow Rate 05/24/23 11:58 4 05/24/23 10:54 4 05/24/23 09:48 05/24/23 07:42 4 05/24/23 07:39 05/24/23 07:28 4 05/24/23 05:28 05/24/23 03:39 Laboratory Results Laboratory Results - last 24 hr 05/24/23 05/24/23 09:21 21:30 WBC 12.35 H RBC 4.62 L Hgb 15.8 Hct 43.7 MCV 94.6 MCH 34.2 H MCHC 36.2 H RDW Std Deviation 44.4 RDW Coeff of Doris 13.2 Plt Count 233 MPV 11.0 Immature Gran % (Auto) 0.6 Neut % (Auto) 88.3 Lymph % (Auto) 7.4 Donley % (Auto) 3.5 Eos % (Auto) 0.0 Baso % (Auto) 0.2 Neut # (Auto) 10.91 H Lymph # (Auto) 0.91 L Donley # (Auto) 0.43 Eos # (Auto) 0.00 Baso # (Auto) 0.02 Immature Gran # (Auto) 0.08 Sodium 137 Potassium 4.0 Chloride 104 Carbon Dioxide 25 Anion Gap 8 BUN 8 Creatinine 0.64 Est Cr Clr Drug Dosing 193.9 Est GFR ( Amer) 148.1 Est GFR (Non-Af Amer) 127.7 BUN/Creatinine Ratio 12.5 Glucose 110 H Calcium 9.5 Magnesium 2.6 H Total Bilirubin 0.8 Direct Bilirubin 0.2 AST 29 ALT 74 H Alkaline Phosphatase 86 Total Protein 8.0 Albumin 4.4 Urine Legionella Ag Pending PG Care Time/CCT Total # of Minutes Spent Total Time Spent with Patient: Total time spent is greater than 50% in coordination of care (as documented) at patient's floor/unit and/or counseling patient: Coding Level of Care Code 76186 SUB INP/OBS CARE 235MIN Diagnoses RLL pneumonia J18.9 Fracture of rib S22.32XA Encounter type: initial encounter Fracture type: closed Laterality: left Rib fracture type: single rib Elevated transaminase level R74.01 Asthma J45.909 Depression with anxiety F41.8 Hypertension I10 Esophageal reflux K21.9 (2) Fracture of rib Encounter type: initial encounter Fracture type: closed Laterality: left Rib fracture type: single rib Qualified Code(s): S22.32XA - Fracture of one rib, left side, initial encounter for closed fracture
[2023-05-24] MEDS: ACETAMINOPHEN 500 MG TAB PO SCH ×2 (15:50→21:06)
[2023-05-24] MEDS: KETOROLAC 30 MG/ML VIAL IV SCH ×2 (15:50→21:06)
[2023-05-24] MEDS: ATENOLOL 25 MG TABLET PO SCH (21:07)
[2023-05-24] MEDS: SERTRALINE HCL 100 MG TABLET PO SCH (21:08)
[2023-05-25] MEDS: cefTRIAXone SODIUM 2,000 MG in DEXTROSE 5 % MINI-B 50 ML IV SCH (04:15)
[2023-05-25] MEDS: KETOROLAC 30 MG/ML VIAL IV SCH ×2 (04:15→09:34)
[2023-05-25] MEDS: ALBUT/IPRATROP 3MG/0.5MG NEB 3 ML VIAL NEB SCH ×4 (07:13→20:23)
[2023-05-25] MEDS: AZITHROMYCIN 250 MG in DEXTROSE 5% 250 ML IV SCH (07:28)
[2023-05-25 08:03] LABS: BUN Creatinine Ratio 18.9 (10-20); Calcium 8.9 mg/dl (8.6-10.3); Creatinine Clr Calc Pharmacy 169.5 ml/min; Est GFR (African American) 139.5 ml/min; Est GFR (Non-African American) 120.3 ml/min; Potassium 4.1 mmol/L (3.5-5.1)
[2023-05-25] MEDS: guaiFENesin 600 MG TABCR PO SCH ×2 (09:34→20:50)
[2023-05-25] MEDS: LIDOCAINE 5% 1 PATCH TD SCH (09:35)
[2023-05-25] MEDS: ENOXAPARIN INJ 40 MG/0.4 ML SYR SQ SCH ×2 (09:36→09:37)
[2023-05-25] MEDS: ACETAMINOPHEN 500 MG TAB PO SCH ×3 (09:36→20:49)
[2023-05-25] MEDS ORDERED: predniSONE 20 MG TAB PO STA (15:03)
[2023-05-25] MEDS: ERGOCALCIFEROL 50,000 UNITS 1250 MCG CAP PO ONE ×2 (15:37→19:08)
--- NOTE | 2023-05-25 19:21 | Hospitalist Progress Note ---
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, typically around locker rooms/pool/etc) sent sputum cx resp biofire negative - noted cont NC O2 and supportive care (2) Fracture of rib: Plan: #7 on right likely happened following a coughing spell cont dilaudid prn cont lidoderm finish toradol 30mg IV q6h x 4 doses checked 25-OH vit D level am - undetectable level which could be contributing to poor bone health (3) Elevated transaminase level: Plan: AST mildly elevated at 54 - now normal ALT mildly elevated at 91 at presentation - continues to trend down Alk phos WNL PT/INR WNL h/o abnormal LFTs in the past per old labs h/o fatty liver trend (4) Asthma: Plan: cont duonebs qid scheduled cont flutter & IS he mentions he uses albuterol 2-3 x's each week on a typical week should be on a controller agent consider inhaled corticosteroid at discharge will start PO prednisone - 60mg today, 50mg tomorrow, and so forth would benefit from following with pulmonology (5) Depression with anxiety: Plan: Continue sertraline (6) Hypertension: Plan: Continue atenolol (7) Esophageal reflux: Plan: Cont ppi (8) Vitamin D deficiency: Plan: severe undetectable level ergocalciferol 50,000 units weekly x 8 weeks would do calcium as well over the next 8 weeks Plan VTE PPx: Lovenox 40mg SQ q24h progressing nicely needs 1 more day likely home tomorrow d/c tele move to med/surg Admission and Anticipated Discharge Date Admission Date: May 23, 2023 Subjective tele - stable overnight - NSR feeling better cough, dyspnea all improved minimal sputum can take deeper breaths much more comfortably - especially the right chest where rib fracture is denies ZIMMERMAN I took him for a walk and his sats dropped to 88-89% towards end of the walk Review of Systems Review of Systems: gen - no fevers, no chills, appetite improved cv - no substernal pain; no left-sided pain GI - no abd pain/nausea/emesis pulm - all symptoms improved Physical Exam Physical Exam: gen - obese, looks better today, less cough; during our walk he was NOT dyspneic but sats dropped to 88-89% towards end of walk neck - no JVD mouth - MMM heart - RRR, s1 s2, no murmur lungs - rales R base about [address] up back; occasional end-exp wheezes, no increased work of breathing abd - soft nt nd BS+ ext - no edema, pulses 2+ b/l psych - a/o x 3 Results & Data Results & Data Vital Signs (Past 12 Hours) Vital Signs Temp Pulse Resp BP Pulse Ox O2 Del Method 05/25/23 18:02 98 H 18 162/114 H 92 Room Air 05/25/23 16:56 36.6 C 92 H 18 135/83 92 Room Air 05/25/23 15:02 97 H 18 93 Room Air 05/25/23 10:34 95 H 16 90 Room Air 05/25/23 08:06 93 H 18 124/85 91 Room Air 05/25/23 07:30 Room Air Laboratory Results Laboratory Results - last 24 hr 05/24/23 05/25/23 21:30 06:04 Sodium 137 Potassium 4.1 Chloride 107 Carbon Dioxide 23 Anion Gap 7 BUN 14 Creatinine 0.74 Est Cr Clr Drug Dosing 169.5 Est GFR ( Amer) 139.5 Est GFR (Non-Af Amer) 120.3 BUN/Creatinine Ratio 18.9 Glucose 99 Calcium 8.9 ALT 68 H 25-OH Vitamin D Total < 7.0 L Urine Legionella Ag Pending PG Care Time/CCT Total # of Minutes Spent Total Time Spent with Patient: Total time spent is greater than 50% in coordination of care (as documented) at patient's floor/unit and/or counseling patient: Coding Level of Care Code 32554 SUB INP/OBS CARE 2/35MIN Diagnoses RLL pneumonia J18.9 Fracture of rib S22.32XA Encounter type: initial encounter Fracture type: closed Laterality: left Rib fracture type: single rib Elevated transaminase level R74.01 Asthma J45.909 Depression with anxiety F41.8 Hypertension I10 Esophageal reflux K21.9 Vitamin D deficiency E55.9 (2) Fracture of rib Encounter type: initial encounter Fracture type: closed Laterality: left Rib fracture type: single rib Qualified Code(s): S22.32XA - Fracture of one rib, left side, initial encounter for closed fracture
[2023-05-25] MEDS ORDERED: ERGOCALCIFEROL 50,000 UNITS 1250 MCG CAP PO ONE (19:30)
[2023-05-25] MEDS: oxyCODONE HCL IR 5 MG TAB (IMMEDIATE RELEASE) PO PRN (19:38)
[2023-05-25] MEDS: SERTRALINE HCL 100 MG TABLET PO SCH (20:50)
[2023-05-25] MEDS: PANTOprazole 40 MG TAB PO SCH (20:50)
[2023-05-25] MEDS: ATENOLOL 25 MG TABLET PO SCH (20:50)
[2023-05-26] MEDS ORDERED: COUGH DROP (SUGAR FREE) LOZ 24 LOZ/1 BOX BUCCAL ONE (00:09)
[2023-05-26] MEDS: oxyCODONE HCL IR 5 MG TAB (IMMEDIATE RELEASE) PO PRN ×4 (01:02→21:33)
[2023-05-26] MEDS: cefTRIAXone SODIUM 2,000 MG in DEXTROSE 5 % MINI-B 50 ML IV SCH (05:43)
[2023-05-26] MEDS: ALBUT/IPRATROP 3MG/0.5MG NEB 3 ML VIAL NEB SCH ×4 (07:20→19:42)
[2023-05-26] MEDS: AZITHROMYCIN 250 MG in DEXTROSE 5% 250 ML IV SCH (07:39)
[2023-05-26 07:58] LABS: Anion Gap 7 (3-11); BUN Creatinine Ratio 14.3 (10-20); Blood Urea Nitrogen 10 mg/dl (6-23); Calcium 9.2 mg/dl (8.6-10.3); Carbon Dioxide 25 mmol/L (21-32); Chloride 105 mmol/L (98-107); Creatinine Clr Calc Pharmacy 179.2 ml/min; Est GFR (African American) 142.7 ml/min; Est GFR (Non-African American) 123.1 ml/min; Glucose 103 mg/dl (70-99(Fasting)); Sodium 137 mmol/L (136-145)
[2023-05-26] MEDS: ACETAMINOPHEN 500 MG TAB PO SCH ×3 (08:39→20:28)
[2023-05-26] MEDS: guaiFENesin 600 MG TABCR PO SCH ×2 (08:39→20:27)
[2023-05-26] MEDS: ENOXAPARIN INJ 40 MG/0.4 ML SYR SQ SCH ×2 (08:39→08:43)
[2023-05-26] MEDS: LIDOCAINE 5% 1 PATCH TD SCH (08:40)
[2023-05-26] MEDS ORDERED: predniSONE 50 MG TAB PO ONE (09:31)
[2023-05-26] MEDS: FLUTICASONE/VILANTEROL 100/25MCG 14 PUFFS/INHALER INH SCH (11:46)
--- NOTE | 2023-05-26 15:03 | XRay Report ---
XR chest 2V PA/lateral CLINICAL HISTORY: RLL pneumonia, hypoxia TECHNIQUE: 2 views of the chest were obtained. Comparison: Comparison is made to chest radiograph 05/23/[address] chest 05/23/2023 FINDINGS: No lines and tubes are seen. Cardiomegaly is noted. Questionable faint opacity in the right lower breanna g. No evidence of pleural effusion or pneumothorax. Partial visualization of right rib fracture. IMPRESSION: Questionable faint opacity in the right lower lung. ACT 112: Negative or not required by law. Electronically signed by: James Michael M.D. 05/26/2023 3:02 PM
[2023-05-26] MEDS ORDERED: methylPREDNISolone 40 MG in SYRINGE 0 ML IV ONE (18:04)
[2023-05-26] MEDS: SERTRALINE HCL 100 MG TABLET PO SCH (20:27)
[2023-05-26] MEDS: ATENOLOL 25 MG TABLET PO SCH (20:27)
[2023-05-26] MEDS: PANTOprazole 40 MG TAB PO SCH (20:28)
[2023-05-26] MEDS: KETOROLAC 30 MG/ML VIAL IV PRN (20:28)
[2023-05-27] MEDS: oxyCODONE HCL IR 5 MG TAB (IMMEDIATE RELEASE) PO PRN (05:08)
[2023-05-27] MEDS: cefTRIAXone SODIUM 2,000 MG in DEXTROSE 5 % MINI-B 50 ML IV SCH (05:08)
--- NOTE | 2023-05-27 06:00 | Hospitalist Progress Note ---
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 - thus far negative resp biofire negative cont NC O2 - if needed - and supportive care recommended f/u with pulmonology after discharge due to chronic, uncontrolled asthma as well as this pneumonia (2) Asthma: Plan: acute -- has exacerbation chronic -- uncontrolled - he mentions he uses albuterol 2-3 x's each week on a typical week should be on a controller agent - to that end started Breo 1 puff daily initially had him on prednisone taper starting at 60mg but he continues with low 02 sats, wheezing, coughing, ZIMMERMAN, etc change PO prednisone over to solumedrol -- give 40mg of solumedrol tonight, followed by 40mg IV q12h thereafter cont duonebs, flutter valve, etc would benefit from following with pulmonology - asked confidential secretary to schedule an outpatient visit for him (3) Fracture of rib: Plan: #7 on right likely happened following a coughing spell at home cont dilaudid prn cont lidoderm cont toradol 30mg IV q6h prn cont oxy 5mg q6h prn overall pain is better checked 25-OH vit D level am - undetectable level which could be contributing to poor bone health - see below (4) Elevated transaminase level: Plan: AST mildly elevated at 54 - now normal ALT mildly elevated at 91 at presentation - continues to trend down Alk phos WNL PT/INR WNL h/o abnormal LFTs in the past per old labs h/o fatty liver could be reactive to whatever pathogen he has causing his pneumonia OR due to his fatty liver (5) Depression with anxiety: Plan: Continue sertraline (6) Hypertension: Plan: Continue atenolol (7) Esophageal reflux: Plan: Cont ppi (8) Vitamin D deficiency: Plan: severe undetectable level ergocalciferol 50,000 units weekly x 8 weeks would do calcium as well received first dose of ergocalciferol yesterday start oscal 1 daily Plan VTE PPx: Lovenox 40mg SQ q24h progressing albeit slowly keep at least 1 more day discharge hinges on adequate O2 saturations with activity (continues to desat to upper 80s with walking in hallway), symptom control, etc Admission and Anticipated Discharge Date Admission Date: May 23, 2023 Subjective patient overall feels better however he remains short of breath with activity when I came to see him this am he had just finished up doing his AM grooming and toileting he was visibily dyspneic as he just returned to the bed he was tachypneic for about a minute then it resolved he continues with cough able to take deeper breaths, however right rib pain is better eating/drinking well Review of Systems Review of Systems: gen - no fevers or chills cv - right chest wall pain improved pulm - cough, congestion, wheezing, ZIMMERMAN GI - no abd pain or N/V Physical Exam Physical Exam: gen - obese, coughing, was visibly short of breath when I first came to see him neck - no JVD mouth - MMM heart - RRR, s1 s2, no murmur lungs - rales R base remain; wheezes and occasional rhonchi b/l worse on left; minimal crackles L base; airation is better than previous abd - soft nt nd BS+ ext - no edema, pulses 2+ b/l psych - a/o x 3 Results & Data Results & Data Vital Signs (Past 12 Hours) Vital Signs Temp Pulse Resp BP Pulse Ox O2 Del Method 05/26/23 14:22 110 H 20 91 Room Air 05/26/23 11:21 90 18 90 Room Air 05/26/23 07:30 Room Air 05/26/23 07:21 81 16 94 Room Air 05/26/23 07:11 36.8 C 83 16 137/83 94 Room Air Laboratory Results Laboratory Results 05/25/23 05/26/23 05/26/23 06:04 06:43 08:43 Sodium 137 137 Potassium 4.1 TNP 3.7 Chloride 107 105 Carbon Dioxide 23 25 Anion Gap 7 7 BUN 14 10 Creatinine 0.74 0.70 Est Cr Clr Drug Dosing 169.5 179.2 Est GFR ( Amer) 139.5 142.7 Est GFR (Non-Af Amer) 120.3 123.1 BUN/Creatinine Ratio 18.9 14.3 Glucose 99 103 H Calcium 8.9 9.2 ALT 68 H 25-OH Vitamin D Total < 7.0 L Diagnostic Findings I walked Mr Lowery around the unit and he was 90-91% most of the walk but did drop to 88-89% towards the end It took about 30-60 seconds for sats to rebound to low-mid 90s PG Care Time/CCT Total # of Minutes Spent Total Time Spent with Patient: Total time spent is greater than 50% in coordination of care (as documented) at patient's floor/unit and/or counseling patient: Coding Level of Care Code 98881 SUB INP/OBS CARE 3/50MIN Diagnoses RLL pneumonia J18.9 Asthma J45.909 Fracture of rib S22.32XA Encounter type: initial encounter Fracture type: closed Laterality: left Rib fracture type: single rib Elevated transaminase level R74.01 Depression with anxiety F41.8 Hypertension I10 Esophageal reflux K21.9 Vitamin D deficiency E55.9 (3) Fracture of rib Encounter type: initial encounter Fracture type: closed Laterality: left Rib fracture type: single rib Qualified Code(s): S22.32XA - Fracture of one rib, left side, initial encounter for closed fracture
[2023-05-27] MEDS: ALBUT/IPRATROP 3MG/0.5MG NEB 3 ML VIAL NEB SCH ×3 (07:29→15:04)
[2023-05-27] MEDS: LIDOCAINE 5% 1 PATCH TD SCH (07:59)
[2023-05-27] MEDS: guaiFENesin 600 MG TABCR PO SCH (07:59)
[2023-05-27] MEDS: ENOXAPARIN INJ 40 MG/0.4 ML SYR SQ SCH (08:00)
[2023-05-27] MEDS: FLUTICASONE/VILANTEROL 100/25MCG 14 PUFFS/INHALER INH SCH (08:01)
[2023-05-27] MEDS: AZITHROMYCIN 250 MG in DEXTROSE 5% 250 ML IV SCH (08:23)
[2023-05-27] MEDS: ACETAMINOPHEN 500 MG TAB PO SCH ×2 (08:59→12:48)
[2023-05-27] MEDS ORDERED: CALCIUM CARBONATE 1250MG TAB PO SCH (09:00)
[2023-05-27] MEDS ORDERED: methylPREDNISolone 40 MG in SYRINGE 0 ML IV SCH (09:00)
[2023-05-27] MEDS: KETOROLAC 30 MG/ML VIAL IV PRN (12:51)
--- NOTE | 2023-05-27 18:30 | Discharge Summary ---
Date of Service May 27, 2023 Admission HPI Per Admitting Provider Ifeanyi is a 32-year-old male with PMH of asthma, HTN, depression, anxiety, and esophageal reflux. He presented for right flank pain on 05/23 and worsening SOB over the past month. Patient's mother is at the bedside and provides additional history. Mom tested positive for COVID on 04/16. Per mom, the patient developed cough and cold symptoms around [place] time, but tested negative for COVID at this time. His symptoms continue to linger. On 05/14, patient had an outpatient CXR that showed pneumonia, and he was started on a prednisone taper and Augmentin 875-125mg x 10 days. He has been using a pulse ox at home, which has been measuring low 90% range. Patient does not use supplemental oxygen at home. He has been taking his mother's albuterol nebulizer 23 times per day, which she reports helps. He is also been using Mucinex dm for cough. Breathing is worse when he lies flat. Of note, the patient developed right-sided back and flank pain on 05/22, then heard a "pop" while coughing on 05/23 and thought he might have cracked a rib. No radiation up the back or down to the legs. Patient reports that the right rib pain is worse with coughing. He took ibuprofen for it yesterday, but nothing today. He did not take any of his regular medications today; no recent change in medications. He endorses alcohol use, but nothing within the past week. He also endorses mild tobacco cigarette smoking; 1-2 cigarettes per day on occasion. Patient is mildly tachycardic at 110 bpm, with SpO2 94% on 4L NC at time of admission. ED course: DuoNeb 12 mL Magnesium sulfate 1 g IV NSS 1000 mL IV Solu-Medrol 125 mg IV ROS: Patient endorses productive cough (clear sputum production), body aches, ZIMMERMAN, right flank/rib pain, and diarrhea (after starting Augmentin). Patient denies fever, chills, night-sweats, rashes, tick bites, chest pain, chest palpitations, SOB at rest, hemoptysis, pleuritic CP, abdominal pain, N/V, dysuria, burning with urination, or numbness/tingling/redness/pain in the legs or arms. Principal Diagnosis Right lower lobe pneumonia, acute asthma exacerbation Discharge Exam PHYSICAL EXAMINATION Last 24h vital signs reviewed, see documentation in flowsheet General: comfortable appearing, no distress, sitting upright on bed HEENT: Normocephalic, atraumatic, pupils round and equal, sclerae anicteric, no conjunctival injection, moist mucus membranes Lungs: Normal respiratory effort. Clear to auscultation bilaterally. No RRW Heart: Regular rate and rhythm, no murmurs. No JVD Abdomen: Soft, nondistended. Extremities: Warm, dry, well-perfused. No extremity edema. Neuro: Alert and oriented x 4, face symmetric, moves 4 extremities well Psych: Normal affect and behavior Discharge Data Allergies Allergy/AdvReac Type Severity Reaction Status Date / Time No Known Allergies Allergy Verified 05/23/23 18:01 Consultations 05/23/23 19:10 ED Decision to Admit Stat Ordered Studies 05/23/23 21:07 CT angio chest PE protocol Stat Chest X-Ray 05/23/23 17:17 XR chest 1V portable HISTORY: 32 years-old Male Dyspnea acute shortness of breath COMPARISON: 05/14/2023 TECHNIQUE: AP view of the chest FINDINGS: Cardiomediastinal and hilar silhouettes are unchanged. No pneumothorax, pleural effusion or lobar airspace consolidation. Previously questioned right basilar opacities are not definitively seen. The bones appear grossly intact. IMPRESSION: No acute process of the chest. ACT 112: Negative or not required by law. The above report was generated using voice recognition software. It may contain grammatical, syntax or spelling errors. Electronically signed by: Paul Higuera M.D. 05/23/2023 5:42 PM Chest CTA 05/23/23 21:07 Exam(s): CTA CHEST IV Amt: 116ML OPTIRAY 320 EXAM: CT Angiography Chest With Intravenous Contrast CLINICAL HISTORY: Reason for exam: PE. TECHNIQUE: Axial computed tomographic angiography images of the chest with intravenous contrast. Automated exposure control was utilized for the study. A dose lowering technique was utilized adhering to the principles of ALARA. MIP reconstructed images were created and reviewed. COMPARISON: No relevant prior studies available. FINDINGS: Pulmonary arteries: Adequate pulmonary artery opacification. Normal caliber main pulmonary artery. No evidence of acute pulmonary embolism. Aorta: No acute findings. No thoracic aortic aneurysm or dissection. Lungs: Bilateral bronchial wall thickening. Widespread centrilobular nodules and tree-in-bud opacities in the right lower lobe. Multiple subpleural pulmonary micronodules measuring 2 mm in the right middle lobe (series 2, image 35), 5 mm in the left lower lobe (series 2, image 46), 3 mm in the left lower lobe (series 2, image 60); per Fleischner Society guidelines, no follow-up is required. Subsegmental atelectasis at the bilateral lung bases. No pulmonary mass. Pleural space: Unremarkable. No pleural effusion or pneumothorax. Heart: Unremarkable. No cardiomegaly. No significant pericardial effusion. No evidence of RV dysfunction. Bones/joints: Acute nondisplaced fracture lateral right rib 7. Osseous structures otherwise intact. No dislocation. Soft tissues: Unremarkable. Lymph nodes: Unremarkable. No enlarged lymph nodes. IMPRESSION: 1. Extensive centrilobular nodules and tree-in-bud opacities in the right lower lobe consistent with infectious or inflammatory bronchiolitis/small airways disease. 2. Acute nondisplaced fracture lateral right rib 7. 3. No evidence of acute pulmonary embolism. Electronically signed by: Patricio Flores M.D. 05/23/23 23:09 PM Chest X-Ray 05/26/23 11:18 XR chest 2V PA/lateral CLINICAL HISTORY: RLL pneumonia, hypoxia TECHNIQUE: 2 views of the chest were obtained. Comparison: Comparison is made to chest radiograph 05/23/[address] chest 05/23/2023 FINDINGS: No lines and tubes are seen. Cardiomegaly is noted. Questionable faint opacity in the right lower lung. No evidence of pleural effusion or pneumothorax. Partial visualization of right rib fracture. IMPRESSION: Questionable faint opacity in the right lower lung. ACT 112: Negative or not required by law. Electronically signed by: James Michael M.D. 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, typically around locker rooms/pool/etc) - pending sent sputum cx - normal abelino resp biofire negative symptoms significantly improved by discharge -complete rest of course of oral augmentin (has 2-3 days on hand, will easily be over 7 days total treatment) -complete 5th dose of azithromycin arranged follow up with pulmonology after discharge due to chronic, uncontrolled asthma as well as this pneumonia -repeat imaging recommended by radiologist to ensure resolution - I discussed this with Ifeanyi (2) Asthma: acute -- has exacerbation chronic -- uncontrolled - he mentions he uses albuterol 2-3 x's each week on a typical week should be on a controller agent - to that end started Breo 1 puff daily discharged with short course of prednisone, pulmonary follow up (3) Fracture of rib: #7 on right likely happened following a coughing spell at home overall pain is better -continue topical analgesics, APAP, ibuprofen, and low dose oxycodone PRN checked 25-OH vit D level am - undetectable level which could be contributing to poor bone health - see below (4) Elevated transaminase level: AST mildly elevated at 54 - now normal ALT mildly elevated at 91 at presentation - continues to trend down Alk phos WNL PT/INR WNL h/o abnormal LFTs in the past per old labs h/o fatty liver could be reactive to whatever pathogen he has causing his pneumonia OR due to his fatty liver (5) Depression with anxiety: Continue sertraline (6) Hypertension: Continue atenolol (7) Esophageal reflux: Cont ppi (8) Vitamin D deficiency: severe undetectable level ergocalciferol 50,000 units weekly x 6 weeks prescribed at discharge -follow up in primary care for ongoing supplementation Total Time Total Time Spent Total Time Spent (In Minutes): 25 minutes Discharge Plan Discharge Items Patient Disposition: Home - Self-Care Reason For Visit: COUGH, PAIN Discharge Diagnosis: Right lower lobe pneumonia, asthma exacerbation, vitamin D deficiency Activity: Per Instructions section Lifting: Gradually increase as tolerated Non-emergency contact: Primary Care Provider Call non-emergency contact if: you have any medication questions, your symptoms worsen and your temperature is above 101 Follow-up/Referrals: Clemente Cui MD [Primary Care Provider] - 06/02/23 3:00 pm (APPOINTMENT WITH [facility]) Brody Guajardo MD [Physician] - (SPOKE WITH TEDDY, SHE WILL HAVE THE OFFICE STAFF CALL PATIENT FOR A HOSPITAL FOLLOW UP IN 1 MONTH FOR UNCONTROLLED ASTHMA ) Diet: Regular Addtl Attending Provider Instructions: You were treated for: Right lower lobe pneumonia, asthma exacerbation, rib fracture, vitamin D deficiency Today is day 4 of antibiotics. I prescribed one more day of azithromycin (total 5 days) You can finish your previous prescription for amoxicillin-clavulanate (2 or 3 more days) -start both of these antibiotics tomorrow AM because you already got doses today that last for 24 hours Prednisone for 5 more days for asthma exacerbation - relaxes the airways Albuterol rescue inhaler as needed Asthma control inhaler -we made a referral to digital photo printer for asthma and to follow up the pneumonia - he might want you to get repeat lung imaging in 4-6 weeks to make sure it resolved you can use acetaminophen or ibuprofen as directed for mild-moderate rib pain as well as topical treatments like lidocaine patch or pain reliever creams -oxycodone as needed for moderate to severe pain -do not drive or operate heavy machinery while using opioid medication like oxycodone -use the lowest dose / shortest duration possible because opioid type medication carries risk of addiction Your vitamin D level was extremely low - your body gets vitamin D from sunlight and food. You should take a vitamin D supplement to get your level up - 6 weeks of high dose supplement once a week, then you can go on a lower replacement dose -follow up in primary care Pending Studies at Discharge: No Stand-Alone Forms: My [facility], Pain - Opioid Pain Management, Work/School Release, Smoking Cessation Medications and DC Order Prescriptions: New prednisone 20 mg tablet 40 mg PO DAILY 5 Days Qty: 10 0RF azithromycin 250 mg tablet 250 mg PO DAILY 1 Days Qty: 1 0RF Rx Instructions: start on day 2 of therapy oxycodone 5 mg Tablet 5 mg PO Q6H PRN (Reason: pain) Qty: 14 0RF benzonatate 100 mg Capsule 100 mg PO TID PRN (Reason: cough) Qty: 20 0RF fluticasone furoate-vilanterol [Breo Ellipta] 100-25 mcg/dose Blister With Device 1 inh inhalation DAILY Qty: 60 0RF Rx Instructions: ok to make formulary substitution equivalent control inhaler ergocalciferol (vitamin D2) [Vitamin D2] 1,250 mcg (50,000 unit) capsule 50,000 unit PO .weekly Qty: 6 0RF Continued sertraline 100 mg tablet 100 mg PO QPM Qty: 90 3RF atenolol 25 mg tablet 25 mg PO QPM Qty: 30 0RF omeprazole 40 mg capsule,delayed release(DR/EC) 40 mg PO QPM Qty: 90 1RF amoxicillin-pot clavulanate 875-125 mg tablet 1 tab PO BID Qty: 20 0RF Rx Instructions: STARTED 05/14/23 FOR 10 DAYS albuterol sulfate 90 mcg/actuation HFA aerosol inhaler 2 puff inhalation QID PRN (Reason: shortness of breath or wheezing) Qty: 8.5 3RF acetaminophen [Tylenol Extra Strength] 500 mg Tablet 1,000 mg PO Q6H PRN (Reason: Pain) ibuprofen 200 mg Tablet 400 mg PO Q6H PRN (Reason: Pain) Discontinued benzonatate 100 mg capsule 100 mg PO TID PRN (Reason: cough) Qty: 30 1RF Discharge Orders: Discharge Order (Routine); Ordered 05/27/23 Ordered By: Aleisha Smith Admission Data Admit Date/Time: 05/23/23 23:18 Attending Provider: Aleisha Smith Admit Provider: Cora Butler Primary Care Provider: Clemente Cui Other Providers: Cora Butler Other Interventions: Discharge Summary Assessment (RN) Last Done: 05/27/23 16:38 Coding Level of Care Code 32171 IN/OBS DISCH 30 MIN/LESS Diagnoses RLL pneumonia J18.9 Asthma J45.909 Fracture of rib S22.32XA Encounter type: initial encounter Fracture type: closed Laterality: left Rib fracture type: single rib Elevated transaminase level R74.01 Depression with anxiety F41.8 Hypertension I10 Esophageal reflux K21.9 Vitamin D deficiency E55.9
== END 2023-05-27 17:39 | disposition home or self-care (01) | DRG 193 ==
LOC: ED 16:43 → 2N 23:18 → SUATTDRO 23:18 → 2N 05-24 00:55 → 3W 05-25 17:57

== ENCOUNTER 2023-06-16 17:12 | Inpatient (IN) ==
--- NOTE | 2023-06-16 17:28 | ED Triage Note ---
Date of Service June 16, 2023 Provider in Triage Author: Little Ying History of Present Illness This patient was briefly evaluated while in triage. An abbreviated physical exam was performed. This patient is a 32-year-old Male who presents to the ED for evaluation of rib pain. Was recently admitted for pneumonia and a broken rib. Still has a bad cough and over the weekend developed a fever of 100.2 F. Last night he was coughing more and thinks he might have broke a rib on the left side. Hypoxic in Triage. Physical Exam GENERAL: The patient is ill-appearing on exam and hypoxic, but otherwise non- toxic. HEENT: Pupils equal. No obvious scleral icterus. HEART: Regular rate and rhythm. LUNGS: Clear to auscultation. No accessory muscle use. CHEST: The patient is tender to palpation of the bilateral ribs. ABDOMEN: Soft, nontender to palpation. NEURO: Alert and oriented. No obvious neurological deficits on quick neuro exam. Initial orders for labs and / or imaging were placed and patient was taken back to an exam room with oxygen placed since he was hypoxic in triage. Please see further documentation for the full ED course. MDM / Impression Impression Impression: Acute hypoxic respiratory failure, Pneumonia, Closed rib fracture, Infected pilonidal cyst Impression: Pneumonia Qualifiers: Pneumonia type: due to unspecified organism Laterality: unspecified laterality Lung location: unspecified part of lung Qualified Code(s): J18.9 - Pneumonia, unspecified organism Closed rib fracture Qualifiers: Encounter type: initial encounter Rib fracture type: multiple ribs Laterality: unspecified laterality Qualified Code(s): S22.49XA - Multiple fractures of ribs, unspecified side, initial encounter for closed fracture
--- NOTE | 2023-06-16 17:42 | Emergency Department Note ---
Impression & Plan Acute hypoxic respiratory failure, Pneumonia, Closed rib fracture, Infected pilonidal cyst ED Provider Note NAME: ЕКАТЕРИНА RIVERO AGE: 32 SEX: M : 1990 ARRIVES VIA: Walk-In INFORMANT: Patient ED PROVIDER(S): Yefri Stewart DO CHIEF COMPLAINT: shortness of breath HPI: Patient is a 32-year-old male with a past medical history of asthma, pneumonia, depression, anxiety and hypertension for shortness of breath. They note that he was sick and admitted several weeks ago for pneumonia and discharged. He notes shortness of breath cough and congestion has worsened over the past 2 days. Has been having fevers of 101. Does have history of asthma. Has been using his inhaler. Denies any chest pain but admits to shortness of breath. No belly pain nausea vomiting or diarrhea. He does admit to some pain at the base of his sacrum and notes he has a draining abscess/boil present. No urinary, urgency, or frequency. ADDITIONAL HISTORY OBTAINED: Per HPI Chronic Medical/Social Conditions Affecting Care: Per HPI PAST MEDICAL HISTORY:See Below PAST SURGICAL HISTORY:See Below FAMILY HISTORY:See Below SOCIAL HISTORY:See Below HOME MEDICATIONS:See Below ALLERGIES:See Below VITALS:See Below PHYSICAL EXAMINATION: GENERAL: Sitting up in bed, alert, disheveled, slightly ill-appearing, on nasal cannula EYE EXAM: normal conjunctiva. OROPHARYNX: mucous membranes are moist NECK: supple, no nuchal rigidity, no adenopathy, non-tender LUNGS: Diffuse wheezing bilaterally with poor air movement. Normal chest wall mechanics HEART: no murmurs, S1 normal and S2 normal ABDOMEN: abdomen soft, non-tender, normo-active bowel sounds, no masses, no rebound or guarding. BUTTOCK: Erythematous draining abscess at the top of the left gluteus consistent with pilonidal cyst UPPER EXTREMITIES: upper extremities are grossly normal. LOWER EXTREMITIES: No pitting edema. Calves are equal bilaterally NEURO EXAM: Normal sensorium, cranial nerves II-XII grossly intact, normal speech, no gross weakness of arms, no gross weakness of legs. MEDICAL DECISION MAKING: Patient is a 32-year-old male who presents ER with a past medical history of pneumonia for upper respiratory symptoms associated with fever. IV was established blood work is obtained. Labs show no significant leukocytosis or anemia. INR unremarkable. BMP with mild hypokalemia 3.3. Lactate was normal. LFTs and troponin was negative. Lipase was normal. Viral panel was positive for influenza. CT of the chest does show a pneumonia as well as 2 rib fractures. Patient was given IV antibiotics as well as IV fluids and IV morphine. Patient was hypoxic at 86% on room air and placed on 2 L nasal cannula. He was updated bedside discussed with the hospitalist for further evaluation management treatment. Consults/Care Managements Discussions: Per [facility] Triage Nursing notes reviewed. Limited review of prior medical records performed Vital Signs: reviewed and remarkable for tachycardic and hypoxic Differential diagnosis: Differential diagnoses includes but is not limited to pneumonia, bronchitis, COPD/Asthma exacerbation, pneumothorax, pulmonary embolism, congestive heart failure, acute coronary syndrome ER treatment provided: See below Diagnostics interpreted by me include EKG and cardiac monitoring as listed below: -Cardiac Monitoring: An order was placed for continuous cardiac monitoring. The monitor shows a rate of 101 with sinus rhythm. -ECG: Sinus rhythm rate 97 Normal axis No PVCs QTc 429 -Laboratory studies:Interpreted by me as stated above in MDM and shown below. Imaging studies: Xrays: As interpreted by me:none CTs show: CT of the chest per my preliminary interpretation showed no obvious large pneumothorax CT abdomen pelvis per radiology as described above showed rib fractures and pneumonia Critical Care: I have personally spent 32 minutes of critical care time in the direct management of this patient. This includes bedside care, interpretation of diagnostic studies, and testing, discussion with consultants, patient, and family members, and other required patient management activities. This 32 minutes is in excess of all separately billable procedures. 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 History of wisdom tooth extraction Family History Aunt Breast cancer Mother Stroke Family history of reaction to anesthesia difficulty breathing after back surgery Grandmother Stroke Grandfather Stroke Other Diabetes Hypertension Denies family history of Ovarian cancer Prostate cancer Myocardial infarction Colorectal cancer Social History Smoking Status: Never smoker Tobacco Type: Cigarettes Cigarettes Per Day: 2-5 a day; Second Hand Exposure: No; Do You Dip or Chew Tobacco: No; Hx Alcohol Use: Yes Alcohol type: beer Alcohol Intake Frequency: 4 or More x per/Week Hx Substance Use: No Preferred Language: Salvadorean Communication Ability: Effective Communication Ability Comment: has memory difficulties--but can sign own consent Visual Impairment: Limited Hearing Ability: Normal Pickler Helper Required: No Beliefs That Will Affect Care: None marital status: Single Current Living Situation: Parent Current Living Situation Comment: lives with mother current occupational status: unemployed Feels Safe at Home: Yes Childhood Exposure to Second-Hand Smoke: No Diet: regular caffeine: Yes during the past year weight has: remained stable Dental Care, Regularly: No Physical Activity Frequency: Does not Exercise Seatbelt Use: always Sunscreen Use: No Assistive Devices: None Allergies Allergies Allergy/AdvReac Type Severity Reaction Status Date / Time No Known Allergies Allergy Verified 06/16/23 18:02 Home Meds Home Medications Medication Instructions Recorded Confirmed acetaminophen 500 mg tablet 1,000 mg PO Q6H PRN Pain 02/23/21 06/16/23 (Tylenol Extra Strength) ibuprofen 200 mg tablet 400 mg PO Q6H PRN Pain 02/23/21 06/16/23 atenolol 25 mg tablet 25 mg PO QPM 06/16/23 06/16/23 ergocalciferol (vitamin D2) 1,250 50,000 unit PO WK 06/16/23 06/16/23 mcg (50,000 unit) capsule (Vitamin D2) Previous Rx's Medication Instructions Recorded albuterol sulfate 90 mcg/actuation 2 puff inhalation QID PRN 07/31/21 aerosol inhaler shortness of breath or wheezing #8.5 grams omeprazole 40 mg capsule,delayed 40 mg PO QPM #90 caps 10/21/22 release benzonatate 100 mg capsule 100 mg PO TID PRN cough #20 caps 05/27/23 budesonide-formoterol HFA 160 2 puff inhalation Q12H #10.2 grams 06/10/23 mcg-4.5 mcg/actuation aerosol inhaler (Symbicort) sertraline 100 mg tablet 100 mg PO QPM #90 tabs 06/13/23 Results & Data (ED) Vital Signs Vital Signs - 24 hr 06/16/23 17:26 06/16/23 17:29 06/16/23 17:48 Temperature 37.0 C Temperature Source Oral Pulse Rate 108 H 108 H Pulse Rate [Apical] 97 H Pulse Rhythm Regular Respiratory Rate 20 22 22 Respiratory Effort / Characteristics Non-Labored Respiratory Depth Normal Blood Pressure 140/84 Blood Pressure [Left Arm] 137/90 Blood Pressure Mean 102 Blood Pressure Mean [Left Arm] 105 Pulse Oximetry 86 L 93 93 Oxygen Delivery Method Room Air Nasal Cannula Nasal Cannula Oxygen Flow Rate 2 2 Sepsis Recent Fever Within 48 Hours No Sepsis New/Unexplained Change in Mental Status No Sepsis Action Taken by Nursing No Action Required 06/16/23 18:58 06/16/23 19:24 06/16/23 21:39 Temperature Temperature Source Pulse Rate 98 H Pulse Rate [Apical] 100 H 94 H Pulse Rhythm Respiratory Rate 15 18 Respiratory Effort / Characteristics Respiratory Depth Blood Pressure Blood Pressure [Left Arm] 150/93 H 150/118 H Blood Pressure Mean Blood Pressure Mean [Left Arm] 112 128 Pulse Oximetry 95 96 Oxygen Delivery Method Nasal Cannula Nasal Cannula Oxygen Flow Rate 2 2 Sepsis Recent Fever Within 48 Hours Sepsis New/Unexplained Change in Mental Status Sepsis Action Taken by Nursing Laboratory Data 06/16/23 17:40 06/16/23 17:40 Lab Results 06/16/23 06/16/23 Range/Units 17:40 17:44 WBC 5.86 (4.8-10.8) K/ul RBC 4.84 (4.70-6.10) M/uL Hgb 14.9 (14.0-18.0) g/dl Hct 44.0 (42.0-52.0) % MCV 90.9 (80.0-100.0) fL MCH 30.8 (25.0-34.0) pg MCHC 33.9 (32.0-36.0) g/dL RDW Std Deviation 43.8 (36.4-46.3) fL RDW Coeff of Doris 13.1 (11.5-14.5) % Plt Count 153 (130-400) K/uL MPV 11.0 (9.4-12.4) fL Immature Gran % (Auto) 0.3 % Neut % (Auto) 81.6 % Lymph % (Auto) 8.9 % Towner % (Auto) 8.4 % Eos % (Auto) 0.5 % Baso % (Auto) 0.3 % Neut # (Auto) 4.78 (1.40-6.50) K/uL Lymph # (Auto) 0.52 L (1.20-3.40) K/uL Towner # (Auto) 0.49 (0.11-0.59) K/uL Eos # (Auto) 0.03 (0.00-0.50) K/uL Baso # (Auto) 0.02 (0.00-0.20) K/uL Immature Gran # (Auto) 0.02 (0.01-0.20) K/uL PT 11.1 (9.0-12.0) Seconds INR 1.0 (0.9-1.1) APTT 28 (21-31) Seconds PTT Ratio 1.0 Sodium 131 L (136-145) mmol/L Potassium 3.3 L (3.5-5.1) mmol/L Chloride 96 L (98-107) mmol/L Carbon Dioxide 26 (21-32) mmol/L Anion Gap 9 (3-11) BUN 8 (6-23) mg/dl Creatinine 0.67 (0.6-1.4) mg/dl Est Cr Clr Drug Dosing 189.4 ml/min Est GFR ( Amer) 145.3 ml/min Est GFR (Non-Af Amer) 125.4 ml/min BUN/Creatinine Ratio 11.9 (10-20) Glucose 150 H (70-99(Fasting)) mg/dl Lactate 1.1 (0.4-2.0) mmol/L Calcium 9.0 (8.6-10.3) mg/dl Magnesium 1.9 (1.7-2.4) mg/dl Total Bilirubin 1.0 (0.2-1.0) mg/dl AST 36 (13-39) U/L ALT 38 (7-52) U/L Alkaline Phosphatase 75 (34-104) U/L Troponin I High Sens 3.7 (0-20) pg/ml Total Protein 7.2 (6.0-8.3) gm/dl Albumin 3.8 (3.4-5.0) gm/dl Globulin 3.4 (2.5-4.0) gm/dl Albumin/Globulin Ratio 1.1 (0.9-2) Lipase 8 L (11-82) U/L Adenovirus (PCR) Not Detected (NotDetected) B. pertussis DNA (PCR) Not Detected (NotDetected) B.parapertussis DNA PCR Not Detected (NotDetected) C. pneumoniae DNA (PCR) Not Detected (NotDetected) Coronavirus OC43 (PCR) Not Detected (NotDetected) Coronavirus HKU1 (PCR) Not Detected (NotDetected) Coronavirus 229E (PCR) Not Detected (NotDetected) SARS-CoV-2 (PCR) Not Detected (NotDetected) Coronavirus NL63 (PCR) Not Detected (NotDetected) Human Metapneumovir PCR Not Detected (NotDetected) Influenza A Untype (PCR) DETECTED A (NotDetected) Influenza Type B (PCR) Not Detected (NotDetected) M. pneumoniae (PCR) Not Detected (NotDetected) Parainfluenza 1 (PCR) Not Detected (NotDetected) Parainfluenza 2 (PCR) Not Detected (NotDetected) Parainfluenza 3 (PCR) Not Detected (NotDetected) Parainfluenza 4 (PCR) Not Detected (NotDetected) RSV (PCR) Not Detected (NotDetected) Entero/Rhino (PCR) Not Detected (NotDetected) Administered Medications Discontinued Medications Albuterol (Albut/Ipratrop 3mg/0.5mg Neb 3 Ml Vial) 3 ml NEB NOW STA; Protocol Stop: 06/16/23 17:30 Last Admin: 06/16/23 17:54 Dose: Not Given Documented By: ML Albuterol (Albuterol 0.083% Nebu Soln 3 Ml Vial) 2.5 mg NEB NOW STA; Protocol Stop: 06/16/23 17:40 Last Admin: 06/16/23 18:27 Dose: Not Given Documented By: KEG Albuterol (Albuterol 0.083% Nebu Soln 3 Ml Vial) 5 mg NEB NOW STA; Protocol Stop: 06/16/23 17:43 Last Admin: 06/16/23 18:00 Dose: 5 mg Documented By: POP Doxycycline Hyclate (Doxycycline Hyclate 100 Mg Cap) 100 mg PO NOW STA Stop: 06/16/23 20:09 Last Admin: 06/16/23 20:18 Dose: 100 mg Documented By: MARIO Hydralazine HCl (Hydralazine 10 Mg Tab) 10 mg PO NOW STA Stop: 06/16/23 21:48 Last Admin: 06/16/23 22:16 Dose: 10 mg Documented By: MARIO Sodium Chloride (Nss) 1,000 mls @ 999 mls/hr IV .Q1H1M ONE Stop: 06/16/23 18:30 Last Infusion: 06/16/23 19:23 Dose: Infused Documented By: Admin: 06/16/23 17:49 Dose: 999 mls/hr Documented By: CELINE Cefepime HCl (Maxipime) 2,000 mg in 20 mls @ 5 mls/min IV NOW STA; Protocol Stop: 06/16/23 20:11 Last Admin: 06/16/23 20:19 Dose: 5 mls/min Documented By: MARIO Sodium Chloride (Nss) 1,000 mls @ 999 mls/hr IV .Q1H1M ONE Stop: 06/16/23 21:08 Last Admin: 06/16/23 20:52 Dose: 999 mls/hr Documented By: MARIO Ioversol (Optiray 320 500ml) 93 ml IV ONCE ONE Stop: 06/16/23 19:28 Last Admin: 06/16/23 19:28 Dose: 93 ml Documented By: MEAGAN Methylprednisolone (Methylprednisolone 40 Mg/Ml Vial) 40 mg IV NOW STA Stop: 06/16/23 17:40 Last Admin: 06/16/23 18:00 Dose: 40 mg Documented By: POP Morphine Sulfate (Morphine Sulfate 10 Mg/Ml Carp/Vial) 6 mg IV NOW STA Stop: 06/16/23 20:45 Last Admin: 06/16/23 20:52 Dose: 6 mg Documented By: MARIO Morphine Sulfate (Morphine Sulfate 4 Mg/Ml 1 Ml Carp\\Vial) 4 mg IV NOW STA Stop: 06/16/23 21:48 Last Admin: 06/16/23 21:58 Dose: 4 mg Documented By: MARIO Oseltamivir Phosphate (Oseltamivir Phosphate 75 Mg Cap) 75 mg PO NOW STA; Protocol Stop: 06/16/23 21:20 Last Admin: 06/16/23 21:58 Dose: 75 mg Documented By: PRANEETHS Imaging Data Radiologist's Impression: Chest CT 06/16/23 17:29 Exam(s): CT CHEST With Contrast IV Amt: 93ML OF OPTIRAY 320 EXAM: CT Chest With Intravenous Contrast CLINICAL HISTORY: Reason for exam: Recent pneumonia, rib pain. TECHNIQUE: Axial computed tomography images of the chest with intravenous contrast. CTDI is 28.14 mGy and DLP is 951.93 mGy-cm. Automated exposure control was utilized for the study. A dose lowering technique was utilized adhering to the principles of ALARA. CONTRAST: Patient received 93ML OF OPTIRAY 320 of IV contrast COMPARISON: No relevant prior studies available. FINDINGS: Lungs: Airspace consolidation at the lung bases, concerning for mild pneumonia versus atelectasis. Trace bilateral pleural effusions. No mass. Pleural space: See above. Heart: Unremarkable. No cardiomegaly. No significant pericardial effusion. No significant coronary artery calcifications. Bones/joints: No dislocation. Fractures of the RIGHT sixth and seventh ribs. Soft tissues: Unremarkable. Vasculature: Unremarkable. No thoracic aortic aneurysm. Lymph nodes: Unremarkable. No enlarged lymph nodes. Liver: Hepatic steatosis. IMPRESSION: Fractures of the RIGHT sixth and seventh ribs. Mild airspace consolidation at the lung bases, concerning for mild pneumonia versus atelectasis. Trace bilateral pleural effusions. Electronically signed by: Mynor Valladares MD 06/16/23 19:58 PM Discharge Plan Visit Data Chief Complaint: Rib Injury/Pain Stated Complaint: PNEMONIA, POSSIBLE BROKEN RIBS/BOTH SIDES ED Provider: Yefri Stewart Discharge Problem: Acute hypoxic respiratory failure, Pneumonia, Closed rib fracture, Infected pilonidal cyst Forms Stand Alone Forms: [employer] Prescriptions Prescriptions: No Action omeprazole 40 mg capsule,delayed release(DR/EC) 40 mg PO QPM Qty: 90 1RF Rx Instructions: TAKES IN THE AFTERNOON sertraline 100 mg tablet 100 mg PO QPM Qty: 90 3RF Rx Instructions: TAKES IN THE AFTERNOON budesonide-formoterol [Symbicort] 160-4.5 mcg/actuation HFA aerosol inhaler 2 puff inhalation Q12H Qty: 10.2 11RF Rx Instructions: PER FAMILY "HAS NOT STARTED YET". albuterol sulfate 90 mcg/actuation HFA aerosol inhaler 2 puff inhalation QID PRN (Reason: shortness of breath or wheezing) Qty: 8.5 3RF acetaminophen [Tylenol Extra Strength] 500 mg Tablet 1,000 mg PO Q6H PRN (Reason: Pain) ibuprofen 200 mg Tablet 400 mg PO Q6H PRN (Reason: Pain) benzonatate 100 mg Capsule 100 mg PO TID PRN (Reason: cough) Qty: 20 0RF atenolol 25 mg tablet 25 mg PO QPM Rx Instructions: TAKES IN THE AFTERNOON ergocalciferol (vitamin D2) [Vitamin D2] 1,250 mcg (50,000 unit) capsule 50,000 unit PO WK Rx Instructions: SUNDAYS Referrals Referrals: Clemente Cui MD [Primary Care Provider] - Discharge Problem: Pneumonia Qualifiers: Pneumonia type: due to unspecified organism Laterality: unspecified laterality Lung location: unspecified part of lung Qualified Code(s): J18.9 - Pneumonia, unspecified organism Closed rib fracture Qualifiers: Encounter type: initial encounter Rib fracture type: multiple ribs Laterality: unspecified laterality Qualified Code(s): S22.49XA - Multiple fractures of ribs, unspecified side, initial encounter for closed fracture
[2023-06-16] MEDS: SODIUM CHLORIDE 0.9% 1,000 ML IV ONE ×2 (17:49→20:52)
[2023-06-16] MEDS: ALBUT/IPRATROP 3MG/0.5MG NEB 3 ML VIAL NEB STA (17:54)
[2023-06-16] MEDS: ALBUTEROL 0.083% NEBU SOLN 3 ML VIAL NEB STA ×2 (18:00→18:27)
[2023-06-16 18:13] LABS: Basophils # (auto) 0.02 K/uL (0.00-0.20); Basophils % (auto) 0.3 %; Eosinophils # (auto) 0.03 K/uL (0.00-0.50); Eosinophils % (auto) 0.5 %; Hemoglobin 14.9 g/dl (14.0-18.0); Immature Granulocytes # (auto) 0.02 K/uL (0.01-0.20); Immature Granulocytes % (auto) 0.3 %; Lymphocytes # (auto) 0.52 K/uL (1.20-3.40); Lymphocytes % (auto) 8.9 %; Mean Corpuscular Hemoglobin 30.8 pg (25.0-34.0); Mean Corpuscular Hgb Conc 33.9 g/dL (32.0-36.0); Mean Corpuscular Volume 90.9 fL (80.0-100.0); Monocytes # (auto) 0.49 K/uL (0.11-0.59); Monocytes % (auto) 8.4 %; Neutrophils # (auto) 4.78 K/uL (1.40-6.50); Neutrophils % (auto) 81.6 %; Platelet Count 153 K/uL (130-400); RDW Coefficient of Variation 13.1 % (11.5-14.5); RDW Standard Deviation 43.8 fL (36.4-46.3); Red Blood Count 4.84 M/uL (4.70-6.10); White Blood Count 5.86 K/ul (4.8-10.8)
[2023-06-16 18:30] LABS: Albumin Globulin Ratio 1.1 (0.9-2); Albumin Level 3.8 gm/dl (3.4-5.0); BUN Creatinine Ratio 11.9 (10-20); Creatinine Clr Calc Pharmacy 189.4 ml/min; Est GFR (African American) 145.3 ml/min; Est GFR (Non-African American) 125.4 ml/min; Globulin 3.4 gm/dl (2.5-4.0); Magnesium 1.9 mg/dl (1.7-2.4); Potassium 3.3 mmol/L (3.5-5.1); Total Protein 7.2 gm/dl (6.0-8.3)
[2023-06-16 18:36] LABS: Troponin I High Sensitivity 3.7 pg/ml (0-20)
[2023-06-16 18:43] LABS: Partial Thromboplastin Time 28 Seconds (21-31); Prothrombin Time 11.1 Seconds (9.0-12.0)
[2023-06-16 18:52] LABS: Adenovirus PCR Not Detected (NotDetected); Bordetella parapertussis PCR Not Detected (NotDetected); Bordetella pertussis PCR Not Detected (NotDetected); Chlamydia pneumoniae PCR Not Detected (NotDetected); Coronavirus 229E PCR Not Detected (NotDetected); Coronavirus CoV-2 (COVID19)PCR Not Detected (NotDetected); Coronavirus HKU1 PCR Not Detected (NotDetected); Coronavirus NL63 PCR Not Detected (NotDetected); Coronavirus OC43PCR Not Detected (NotDetected); Human Metapneumovirus PCR Not Detected (NotDetected); Influenza A NoSubtype PCR DETECTED (NotDetected); Influenza B PCR Not Detected (NotDetected); Mycoplasma pneumoniae PCR Not Detected (NotDetected); Parainfluenza Virus 1 PCR Not Detected (NotDetected); Parainfluenza Virus 2 PCR Not Detected (NotDetected); Parainfluenza Virus 3 PCR Not Detected (NotDetected); Parainfluenza Virus 4 PCR Not Detected (NotDetected); Respiratory Syncytial VirusPCR Not Detected (NotDetected); Rhinovirus/Enterovirus PCR Not Detected (NotDetected)
[2023-06-16] MEDS: OPTIRAY 320 500ml IV ONE (19:28)
--- NOTE | 2023-06-16 19:59 | CT Scan Report ---
Exam(s): CT CHEST With Contrast IV Amt: 93ML OF OPTIRAY 320 EXAM: CT Chest With Intravenous Contrast CLINICAL HISTORY: Reason for exam: Recent pneumonia, rib pain. TECHNIQUE: Axial computed tomography images of the chest with intravenous contrast. CTDI is 28.14 mGy and DLP is 951.93 mGy-cm. Automated exposure control was utilized for the study. A dose lowering technique was utilized adhering to the principles of ALARA. CONTRAST: Patient received 93ML OF OPTIRAY 320 of IV contrast COMPARISON: No relevant prior studies available. FINDINGS: Lungs: Airspace consolidation at the lung bases, concerning for mild pneumonia versus atelectasis. Trace bilateral pleural effusions. No mass. Pleural space: See above. Heart: Unremarkable. No cardiomegaly. No significant pericardial effusion. No significant coronary artery calcifications. Bones/joints: No dislocation. Fractures of the RIGHT sixth and seventh ribs. Soft tissues: Unremarkable. Vasculature: Unremarkable. No thoracic aortic aneurysm. Lymph nodes: Unremarkable. No enlarged lymph nodes. Liver: Hepatic steatosis. IMPRESSION: Fractures of the RIGHT sixth and seventh ribs. Mild airspace consolidation at the lung bases, concerning for mild pneumonia versus atelectasis. Trace bilateral pleural effusions. Electronically signed by: Mynor Valladares MD 06/16/23 19:58 PM
[2023-06-16] MEDS: DOXYCYCLINE HYCLATE 100 MG CAP PO STA (20:18)
[2023-06-16] MEDS: CEFEPIME 2,000 MG/20 ML VIAL IV STA (20:19)
[2023-06-16] MEDS: MoRPHine SULFATE 10 MG/ML CARP/VIAL IV STA (20:52)
--- NOTE | 2023-06-16 21:06 | History & Physical Report ---
Date of Service June 16, 2023 Assessment & Plan (1) Influenza A: Plan: Patient with Influenza A. Acute symptoms began on 06/14/23. Patient currently afebrile, O2 has improved on 2L. Do not strongly suspect acute bacterial PNA - rather suspect symptoms from new Influenza A infection with some splinting from rib fracture. Patient is high risk with h/o PNA and asthma. WBC and procalcitonin are negative. With acute hypoxic respiratory failure on admission requiring supplemental O2. Sats of 86% - no home O2 use -Continue isolation precautions -Tamiflu 75mg po BID -Supplemental O2 as needed, goal saturation >94% -Follow cultures sent from ER -Continue antibiotics for now - Ceftriaxone and Doxycycline -consider 48 hour stop (2) Closed rib fracture: Plan: Patient with rib fracture - right 6th and 7th - likely secondary to coughing. He does appear to be splinting due to pain, short/shallow breaths. Bibasilar infiltrates vs atelectasis. -Admit to medical -Pain control with Morphine PRN -Tylenol PRN -Incentive spirometry -Continue supplemental O2 as needed (3) Asthma: Plan: Patient with diffuse wheezing. Solumedrol given in ER -Continue Prednisone 40mg po x 3d, 20mg po x 3d and 10 mg po x 3d -Fluticasone/Vilanterol daily -Albuterol PRN -Tessalon TID PRN -Guaifenesin 1200mg po BID (4) Depression with anxiety: Plan: Chronic -Continue Sertraline 100mg po daily (5) Regular alcohol consumption: Plan: Patient reports drinking a 6 pack of beer q daily routinely - last drink was 4-5 days ago. He denies history of EtOH withdrawal -Monitor for EtOH withdrawal (6) Hypertension: Plan: Elevated blood pressure in the ER, improved with Morphine and PO hydralazine -Continue pain control with Morphine PRN -Continue Atenolol -Monitor (7) Esophageal reflux: Plan: Chronic. Stable -Protonix 40mg po daily F/E/N - IVF given in ER, K repletion given in ER 40mEq, repeat BMP in AM, Heart Healthy diet as tolerated Ppx - low risk for DVT Code - Full Dipso - Admit to medical History of Present Illness Chief Complaint: cough, SOB Primary Care Provider: Clemente Cui MD Ifeanyi Lowery is a 32yo male with history of Asthma, HTN, GERD presenting with ongoing cough and SOB. Patient was recently admitted to [facility] from 05/23/23 - 05/27/23 with RLL pneumonia which was treated with Ceftriaxone and Azithromycin. Also with rib fracture secondary to coughing. Patient was discharged on antibiotics and completed his course without difficulty and reports that he was starting to feel better. He returns to the ER tonight with return of fever, chills and cough as well as worsening right sided pain and shortness of breath. Symptoms ongoing since Friday06/14/23. Family has been ill with similar symptoms. Patient with headache, body aches, fever, chills, cough, SOB, right sided pleuritic chest pain as well as nausea and some diarrhea on 06/14. He denies chest pain, palpitations or abdominal pain. No rash. No urinary complaints. He has been using his Albuterol inhaler at home with some relief. Mother reports that they just picked up his Symbicort controller medication today but have not yet taken it. In the ER patient hypoxic at 86% on room air. He was placed on supplemental O2 - now 96% on 2L NC. ER Course: NSS Solumedrol Albuterol Docxycycline Cefepime Morphine 6mg IV Oseltamivir 75mg po Morphine 4mg IV Hydralazine 10mg PO Allergies Allergy/AdvReac Type Severity Reaction Status Date / Time No Known Allergies Allergy Verified 06/16/23 18:02 Home Medications Medication Instructions Recorded Confirmed Type acetaminophen 500 mg tablet 1,000 mg PO Q6H PRN Pain 02/23/21 06/16/23 History (Tylenol Extra Strength) ibuprofen 200 mg tablet 400 mg PO Q6H PRN Pain 02/23/21 06/16/23 History albuterol sulfate 90 mcg/actuation 2 puff inhalation QID PRN 07/31/21 06/16/23 Rx aerosol inhaler shortness of breath or wheezing #8.5 grams omeprazole 40 mg capsule,delayed 40 mg PO QPM #90 caps 10/21/22 06/16/23 Rx release benzonatate 100 mg capsule 100 mg PO TID PRN cough #20 caps 05/27/23 06/16/23 Rx budesonide-formoterol HFA 160 2 puff inhalation Q12H #10.2 grams 06/10/2306/16 Rx mcg-4.5 mcg/actuation aerosol inhaler (Symbicort) sertraline 100 mg tablet 100 mg PO QPM #90 tabs 06/13/23 06/16/23 Rx atenolol 25 mg tablet 25 mg PO QPM 06/16/23 06/16/23 History ergocalciferol (vitamin D2) 1,250 50,000 unit PO WK 06/16/23 06/16/23 History mcg (50,000 unit) capsule (Vitamin D2) 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 History of wisdom tooth extraction Family History Aunt Breast cancer Mother Stroke Family history of reaction to anesthesia difficulty breathing after back surgery Grandmother Stroke Grandfather Stroke Other Diabetes Hypertension Denies family history of Ovarian cancer Prostate cancer Myocardial infarction Colorectal cancer Social History Smoking Status: Light tobacco smoker Tobacco Type: Cigarettes Cigarettes Per Day: 2-5 a day; Second Hand Exposure: No; Do You Dip or Chew Tobacco: No; Hx Alcohol Use: Yes Alcohol type: beer Alcohol Intake Frequency: 4 or More x per/Week Hx Substance Use: No Preferred Language: Wolof Communication Ability: Effective Communication Ability Comment: has memory difficulties--but can sign own consent Visual Impairment: Limited Hearing Ability: Normal Woods Rider Required: No Beliefs That Will Affect Care: None marital status: Single Current Living Situation: Parent Current Living Situation Comment: Lives with mother current occupational status: unemployed Other Information That Helps Us Care for You: No Feels Safe at Home: Yes Safety Concerns: Feels Safe At This Time Childhood Exposure to Second-Hand Smoke: No Diet: regular caffeine: Yes during the past year weight has: remained stable Dental Care, Regularly: No Physical Activity Frequency: Does not Exercise Seatbelt Use: always Sunscreen Use: No Assistive Devices: Glasses Review of Systems Review of Systems: All systems reviewed & are unremarkable except as noted in HPI & below Physical Exam Physical Exam: General: patient ill in appearance, uncomfortable due to rib pain, profusely diaphoretic Skin: diaphoretic, intact, no rashes or lesions HEENT: NC/AT, PERRL, EOMI, anicteric sclera, conjunctiva without injection, external ear normal to inspection and nontender, nares patent, moist mucus membranes, dentition intact, no oropharyngeal lesions, neck supple, trachea midline, no LAD, no thyromegaly, no JVD Heart: +S1/S2, regular, no m/r/g Lungs: equal air entry bilaterally, shallow breaths, +diffuse wheezing throughout, +Crackles in bilateral bases Abd: +BS, soft, NT/ND, no masses/organomegaly/ascites Ext: warm, 2+ pulses in UE/LE bilaterally, no clubbing/cyanosis or edema Neuro: nonfocal, patient AA&O x 4, speech intact, no facial droop, moving all extremities on command with equal strength 5/5 Results & Data Results & Data Vital Signs (Past 12 Hours) Vital Signs Temp Pulse Pulse Resp BP BP Pulse Ox 06/16/23 19:24 100 H 15 150/93 H 95 06/16/23 18:58 98 H 06/16/23 17:48 97 H 22 137/90 93 06/16/23 17:29 108 H 22 93 06/16/23 17:26 37.0 C 108 H 20 140/84 86 L O2 Del Method O2 Flow Rate 06/16/23 19:24 Nasal Cannula 2 06/16/23 18:58 06/16/23 17:48 Nasal Cannula 2 06/16/23 17:29 Nasal Cannula 2 06/16/23 17:26 Room Air Laboratory Results Laboratory Results WBC 5.86 K/ul (4.8-10.8) 06/16/23 17:40 RBC 4.84 M/uL (4.70-6.10) 06/16/23 17:40 Hgb 14.9 g/dl (14.0-18.0) 06/16/23 17:40 Hct 44.0 % (42.0-52.0) 06/16/23 17:40 MCV 90.9 fL (80.0-100.0) 06/16/23 17:40 MCH 30.8 pg (25.0-34.0) 06/16/23 17:40 MCHC 33.9 g/dL (32.0-36.0) 06/16/23 17:40 RDW Std Deviation 43.8 fL (36.4-46.3) 06/16/23 17:40 RDW Coeff of Doris 13.1 % (11.5-14.5) 06/16/23 17:40 Plt Count 153 K/uL (130-400) 06/16/23 17:40 MPV 11.0 fL (9.4-12.4) 06/16/23 17:40 Immature Gran % (Auto) 0.3 % 06/16/23 17:40 Neut % (Auto) 81.6 % 06/16/23 17:40 Lymph % (Auto) 8.9 % 06/16/23 17:40 [place] % (Auto) 8.4 % 06/16/23 17:40 Eos % (Auto) 0.5 % 06/16/23 17:40 Baso % (Auto) 0.3 % 06/16/23 17:40 Neut # (Auto) 4.78 K/uL (1.40-6.50) 06/16/23 17:40 Lymph # (Auto) 0.52 K/uL (1.20-3.40) L 06/16/23 17:40 [place] # (Auto) 0.49 K/uL (0.11-0.59) 06/16/23 17:40 Eos # (Auto) 0.03 K/uL (0.00-0.50) 06/16/23 17:40 Baso # (Auto) 0.02 K/uL (0.00-0.20) 06/16/23 17:40 Immature Gran # (Auto) 0.02 K/uL (0.01-0.20) 06/16/23 17:40 PT 11.1 Seconds (9.0-12.0) 06/16/23 17:40 INR 1.0 (0.9-1.1) 06/16/23 17:40 APTT 28 Seconds (21-31) 06/16/23 17:40 PTT Ratio 1.0 02/12/24 17:40 Sodium 131 mmol/L (136-145) L 06/16/23 17:40 Potassium 3.3 mmol/L (3.5-5.1) L 06/16/23 17:40 Chloride 96 mmol/L (98-107) L 06/16/23 17:40 Carbon Dioxide 26 mmol/L (21-32) 06/16/23 17:40 Anion Gap 9 (3-11) 06/16/23 17:40 BUN 8 mg/dl (6-23) 06/16/23 17:40 Creatinine 0.67 mg/dl (0.6-1.4) 06/16/23 17:40 Est Cr Clr Drug Dosing 189.4 ml/min 06/16/23 17:40 Est GFR ( Amer) 145.3 ml/min 06/16/23 17:40 Est GFR (Non-Af Amer) 125.4 ml/min 06/16/23 17:40 BUN/Creatinine Ratio 11.9 (10-20) 06/16/23 17:40 Glucose 150 mg/dl (70-99(Fasting)) H 06/16/23 17:40 Lactate 1.1 mmol/L (0.4-2.0) 06/16/23 17:40 Calcium 9.0 mg/dl (8.6-10.3) 06/16/23 17:40 Magnesium 1.9 mg/dl (1.7-2.4) 06/16/23 17:40 Total Bilirubin 1.0 mg/dl (0.2-1.0) 06/16/23 17:40 AST 36 U/L (13-39) 06/16/23 17:40 ALT 38 U/L (7-52) 06/16/23 17:40 Alkaline Phosphatase 75 U/L (34-104) 06/16/23 17:40 Troponin I High Sens 3.7 pg/ml (0-20) 06/16/23 17:40 Total Protein 7.2 gm/dl (6.0-8.3) 06/16/23 17:40 Albumin 3.8 gm/dl (3.4-5.0) 06/16/23 17:40 Globulin 3.4 gm/dl (2.5-4.0) 06/16/23 17:40 Albumin/Globulin Ratio 1.1 (0.9-2) 06/16/23 17:40 Lipase 8 U/L (11-82) L 06/16/23 17:40 Procalcitonin 0.09 ng/ml (0-0.5) 06/16/23 17:50 Urine Color Yellow 06/17/23 Unknown Urine Appearance Clear (Clear) 06/17/23 Unknown Urine pH 5.5 (4.5-7.5) 06/17/23 Unknown Ur Specific [place] 1.019 (1.000-1.030) 06/17/23 Unknown Urine Protein Negative (Negative) 06/17/23 Unknown Urine Glucose (UA) Negative (Negative) 06/17/23 Unknown Urine Ketones Negative (Negative) 06/17/23 Unknown Urine Blood Negative (Negative) 06/17/23 Unknown Urine Nitrite Negative (Negative) 06/17/23 Unknown Urine Bilirubin Negative (Negative) 06/17/23 Unknown Urine Urobilinogen Negative (Negative) 06/17/23 Unknown Ur Leukocyte Esterase Negative (Negative) 06/17/23 Unknown Nasal Screen MRSA (PCR) Negative (Negative) 06/17/23 Unknown Adenovirus (PCR) Not Detected (NotDetected) 06/16/23 17:44 B. pertussis DNA (PCR) Not Detected (NotDetected) 06/16/23 17:44 B.parapertussis DNA PCR Not Detected (NotDetected) 06/16/23 17:44 C. pneumoniae DNA (PCR) Not Detected (NotDetected) 06/16/23 17:44 Coronavirus OC43 (PCR) Not Detected (NotDetected) 06/16/23 17:44 Coronavirus HKU1 (PCR) Not Detected (NotDetected) 06/16/23 17:44 Coronavirus 229E (PCR) Not Detected (NotDetected) 06/16/23 17:44 SARS-CoV-2 (PCR) Not Detected (NotDetected) 06/16/23 17:44 Coronavirus NL63 (PCR) Not Detected (NotDetected) 06/16/23 17:44 Human Metapneumovir PCR Not Detected (NotDetected) 06/16/23 17:44 Influenza A Untype (PCR) DETECTED (NotDetected) A 06/16/23 17:44 Influenza Type B (PCR) Not Detected (NotDetected) 06/16/23 17:44 M. pneumoniae (PCR) Not Detected (NotDetected) 06/16/23 17:44 Parainfluenza 1 (PCR) Not Detected (NotDetected) 06/16/23 17:44 Parainfluenza 2 (PCR) Not Detected (NotDetected) 06/16/23 17:44 Parainfluenza 3 (PCR) Not Detected (NotDetected) 06/16/23 17:44 Parainfluenza 4 (PCR) Not Detected (NotDetected) 06/16/23 17:44 RSV (PCR) Not Detected (NotDetected) 06/16/23 17:44 Entero/Rhino (PCR) Not Detected (NotDetected) 06/16/23 17:[address] 06/16/23 17:29 Exam(s): CT CHEST With Contrast IV Amt: 93ML OF OPTIRAY 320 EXAM: CT Chest With Intravenous Contrast CLINICAL HISTORY: Reason for exam: Recent pneumonia, rib pain. TECHNIQUE: Axial computed tomography images of the chest with intravenous contrast. CTDI is 28.14 mGy and DLP is 951.93 mGy-cm. Automated exposure control was utilized for the study. A dose lowering technique was utilized adhering to the principles of ALARA. CONTRAST: Patient received 93ML OF OPTIRAY 320 of IV contrast COMPARISON: No relevant prior studies available. FINDINGS: Lungs: Airspace consolidation at the lung bases, concerning for mild pneumonia versus atelectasis. Trace bilateral pleural effusions. No mass. Pleural space: See above. Heart: Unremarkable. No cardiomegaly. No significant pericardial effusion. No significant coronary artery calcifications. Bones/joints: No dislocation. Fractures of the RIGHT sixth and seventh ribs. Soft tissues: Unremarkable. Vasculature: Unremarkable. No thoracic aortic aneurysm. Lymph nodes: Unremarkable. No enlarged lymph nodes. Liver: Hepatic steatosis. IMPRESSION: Fractures of the RIGHT sixth and seventh ribs. Mild airspace consolidation at the lung bases, concerning for mild pneumonia versus atelectasis. Trace bilateral pleural effusions. Electronically signed by: Mynor Valladares MD 06/16/23 19:58 PM ECG Additional Comments: EKG - per my interpretation - study with NSR at 97, normal axis, NB=389, QRS=76, VRz=052, no acute ischemic changes PG Care Time/CCT Total # of Minutes Spent Total Time Spent with Patient: Total time spent is greater than 50% in coordination of care (as documented) at patient's floor/unit and/or counseling patient: Coding Level of Care Code 81452 INT INP/OBS CARE 3/75MIN Diagnoses Influenza A J10.1 Closed rib fracture S22.49XA Encounter type: initial encounter Laterality: unspecified laterality Rib fracture type: multiple ribs Asthma J45.909 Depression with anxiety F41.8 Regular alcohol consumption Z78.9 Hypertension I10 Esophageal reflux K21.9 (2) Closed rib fracture Encounter type: initial encounter Laterality: unspecified laterality Rib fracture type: multiple ribs Qualified Code(s): S22.49XA - Multiple fractures of ribs, unspecified side, initial encounter for closed fracture
[2023-06-16] MEDS: OSELTAMIVIR PHOSPHATE 75 MG CAP PO STA (21:58)
[2023-06-16] MEDS: MoRPHine SULFATE 4 MG/ML 1 ML CARP\\VIAL IV STA (21:58)
[2023-06-16] MEDS: hydrALAZINE 10 MG TAB PO STA (22:16)
[2023-06-16] MEDS ORDERED: ALBUTEROL 0.5% NEB SOLN 2.5 MG/0.5 ML VIAL NEB PRN (23:54)
[2023-06-16] MEDS ORDERED: ONDANSETRON INJ 2 MG/ML 2 ML VIAL IV PRN (23:54)
[2023-06-17 00:29] LABS: Appearance Urine Clear (Clear); Bilirubin Urine Negative (Negative); Blood Urine Negative (Negative); Color Urine Yellow; Glucose Urine UA Negative (Negative); Ketones Urine Negative (Negative); Leukocyte Esterase Urine Negative (Negative); Nitrite Urine Negative (Negative); Protein Urine Negative (Negative); Specific Gravity Urine 1.019 (1.000-1.030); Urobilinogen Urine Negative (Negative); pH Urine 5.5 (4.5-7.5)
[2023-06-17] MEDS: guaiFENesin 600 MG TABCR PO SCH (00:54)
[2023-06-17] MEDS: SERTRALINE HCL 100 MG TABLET PO SCH (00:54)
[2023-06-17] MEDS: ATENOLOL 25 MG TABLET PO SCH (00:54)
[2023-06-17] MEDS: POTASSIUM CHLORIDE CRTAB 20 MEQ TABCR PO STA (00:58)
[2023-06-17] MEDS: cefTRIAXone SODIUM 2,000 MG in DEXTROSE 5 % MINI-B 50 ML IV SCH (01:01)
[2023-06-17] MEDS: MoRPHine SULFATE 4 MG/ML 1 ML CARP\\VIAL IV PRN (01:05)
[2023-06-17] MEDS: DOXYCYCLINE HYCLATE 100 MG CAP PO SCH (08:20)
[2023-06-17] MEDS: OSELTAMIVIR PHOSPHATE 75 MG CAP PO SCH (08:20)
[2023-06-17] MEDS: predniSONE 20 MG TAB PO SCH (08:20)
[2023-06-17] MEDS: PANTOprazole 40 MG TAB PO SCH (08:20)
[2023-06-17] MEDS: FLUTICASONE/VILANTEROL 200/25MCG 14 PUFFS/INHALER INH SCH (08:20)
[2023-06-17] MEDS: ACETAMINOPHEN 500 MG TAB PO PRN (08:24)
[2023-06-17] MEDS: BENZONATATE 100 MG CAPSULE PO PRN (13:17)
[2023-06-17] MEDS: ACETAMINOPHEN 325 MG TAB PO SCH (17:26)
[2023-06-17] MEDS: traMADol HCL 50 MG TABLET PO PRN (20:08)
[2023-06-17] MEDS: CELECOXIB 100 MG CAP PO SCH (20:08)
--- NOTE | 2023-06-17 22:23 | Hospitalist Progress Note ---
Date of Service June 17, 2023 Assessment & Plan (1) Influenza A: Plan: Patient with Influenza A. Acute symptoms began on 06/14/23. Patient currently afebrile, O2 has improved on 2L. Do not strongly suspect acute bacterial PNA - rather suspect symptoms from new Influenza A infection with some splinting from rib fracture. Patient is high risk with h/o PNA and asthma. WBC and procalcitonin are negative. With acute hypoxic respiratory failure on admission requiring supplemental O2. Sats of 86% - no home O2 use -Continue isolation precautions -Tamiflu 75mg po BID -Supplemental O2 as needed, goal saturation >94% -Follow cultures sent from ER -stop antibiotics. continue tamiflu, stop corticosteroids (2) Closed rib fracture: Plan: Patient with rib fracture - right 6th and 7th - likely secondary to coughing. He does appear to be splinting due to pain, short/shallow breaths. Bibasilar infiltrates vs atelectasis. -Admit to medical -Pain control with Morphine PRN -Tylenol PRN -Incentive spirometry -Continue supplemental O2 as needed (3) Asthma: Plan: Patient with diffuse wheezing. Solumedrol given in ER -Continue Prednisone 40mg po x 3d, 20mg po x 3d and 10 mg po x 3d -Fluticasone/Vilanterol daily -Albuterol PRN -Tessalon TID PRN -Guaifenesin 1200mg po BID (4) Depression with anxiety: Plan: Chronic -Continue Sertraline 100mg po daily (5) Regular alcohol consumption: Plan: Patient reports drinking a 6 pack of beer q daily routinely - last drink was 4-5 days ago. He denies history of EtOH withdrawal -Monitor for EtOH withdrawal (6) Hypertension: Plan: Elevated blood pressure in the ER, improved with Morphine and PO hydralazine -Continue pain control with Morphine PRN -Continue Atenolol -Monitor (7) Esophageal reflux: Plan: Chronic. Stable -Protonix 40mg po daily F/E/N - IVF given in ER, K repletion given in ER 40mEq, repeat BMP in AM, Heart Healthy diet as tolerated Ppx - low risk for DVT Code - Full Dipso - Admit to medical Admission and Anticipated Discharge Date Admission Date: June 16, 2023 Subjective Patient reports no new symptoms. Review of Systems Review of Systems: All systems reviewed & are unremarkable except as noted in HPI & below Physical Exam Physical Exam: General: patient ill in appearance, uncomfortable due to rib pain, profusely diaphoretic Skin: diaphoretic, intact, no rashes or lesions HEENT: NC/AT, PERRL, EOMI Heart: +S1/S2, regular, no m/r/g Lungs: equal air entry bilaterally, shallow breaths, +diffuse wheezing throughout, +Crackles in bilateral bases Abd: +BS, soft, NT/ND, no masses/organomegaly/ascites Ext: warm, 2+ pulses in UE/LE bilaterally, no clubbing/cyanosis or edema Neuro: nonfocal, patient AA&O x 4 Results & Data Results & Data Vital Signs (Past 12 Hours) Vital Signs Temp Pulse Resp BP Pulse Ox O2 Del Method 06/17/23 20:38 94 H 94 Room Air 06/17/23 20:13 36.9 C 103 H 16 144/94 H 92 Room Air 06/17/23 15:15 36.7 C 92 H 18 127/85 92 Room Air PG Care Time/CCT Total # of Minutes Spent Total Time Spent with Patient: Total time spent is greater than 50% in coordination of care (as documented) at patient's floor/unit and/or counseling patient: Coding Level of Care Code 06534 SUB INP/OBS CARE 2/35MIN Diagnoses Influenza A J10.1 Closed rib fracture S22.49XA Encounter type: initial encounter Laterality: unspecified laterality Rib fracture type: multiple ribs Asthma J45.909 Depression with anxiety F41.8 Regular alcohol consumption Z78.9 Hypertension I10 Esophageal reflux K21.9 (2) Closed rib fracture Encounter type: initial encounter Laterality: unspecified laterality Rib fracture type: multiple ribs Qualified Code(s): S22.49XA - Multiple fractures of ribs, unspecified side, initial encounter for closed fracture
--- NOTE | 2023-06-18 05:46 | Electrocardiogram Report ---
Test Reason : Blood Pressure : / mmHG Vent. Rate : 097 BPM Atrial Rate : 097 BPM P-R Int : 166 ms QRS Dur : 076 ms QT Int : 338 ms P-R-T Axes : 034 006 029 degrees QTc Int : 429 ms Normal sinus rhythm When compared with ECG of 23-MAY-2023 18:25, Nonspecific T wave abnormality, improved in Lateral leads Confirmed by Pascual Choe ([id number]) on 06/18/2023 5:46:23 AM Referred By: REFERRED SELF Confirmed By:Pascual Choe
[2023-06-18] MEDS: MoRPHine SULFATE 2 MG/ML CARP IV PRN (07:31)
[2023-06-18 08:02] LABS: Hemoglobin 14.1 g/dl (14.0-18.0); Mean Corpuscular Hemoglobin 31.5 pg (25.0-34.0); Mean Corpuscular Hgb Conc 34.4 g/dL (32.0-36.0); Mean Corpuscular Volume 91.5 fL (80.0-100.0); Mean Platelet Volume 11.4 fL (9.4-12.4); Platelet Count 153 K/uL (130-400); RDW Coefficient of Variation 12.9 % (11.5-14.5); RDW Standard Deviation 43.2 fL (36.4-46.3); Red Blood Count 4.48 M/uL (4.70-6.10); White Blood Count 8.71 K/ul (4.8-10.8)
[2023-06-18 08:38] LABS: Anion Gap 9 (3-11); Calcium 9.2 mg/dl (8.6-10.3); Carbon Dioxide 28 mmol/L (21-32); Chloride 98 mmol/L (98-107); Potassium 3.4 mmol/L (3.5-5.1); Sodium 135 mmol/L (136-145)
[2023-06-18 08:44] LABS: Blood Urea Nitrogen 9 mg/dl (6-23); C Reactive Protein 8.93 mg/dl (0-0.5); Creatinine Clr Calc Pharmacy 207.1 ml/min; Est GFR (African American) > 150.0 ml/min; Est GFR (Non-African American) 131.2 ml/min; Glucose 87 mg/dl (70-99(Fasting))
--- NOTE | 2023-06-18 23:36 | Hospitalist Progress Note ---
Date of Service June 18, 2023 Assessment & Plan (1) Influenza A: Plan: Patient with Influenza A. Acute symptoms began on 06/14/23. Patient currently afebrile, O2 has improved on 2L. Do not strongly suspect acute bacterial PNA - rather suspect symptoms from new Influenza A infection with some splinting from rib fracture. Patient is high risk with h/o PNA and asthma. WBC and procalcitonin are negative. With acute hypoxic respiratory failure on admission requiring supplemental O2. Sats of 86% - no home O2 use -Continue isolation precautions -Tamiflu 75mg po BID -Supplemental O2 as needed, goal saturation >94% -Follow cultures sent from ER -stop antibiotics. continue tamiflu, stop corticosteroids Failed 2 step on 06/18, may retry on 06/19 (2) Closed rib fracture: Plan: Patient with rib fracture - right 6th and 7th - likely secondary to coughing. He does appear to be splinting due to pain, short/shallow breaths. Bibasilar infiltrates vs atelectasis. -Admit to medical -Pain control with Morphine PRN -Tylenol PRN -Incentive spirometry -Continue supplemental O2 as needed (3) Asthma: Plan: Patient with diffuse wheezing. Solumedrol given in ER -stopped corticosteroids -Fluticasone/Vilanterol daily -Albuterol PRN -Tessalon TID PRN -Guaifenesin 1200mg po BID (4) Depression with anxiety: Plan: Chronic -Continue Sertraline 100mg po daily (5) Regular alcohol consumption: Plan: Patient reports drinking a 6 pack of beer q daily routinely - last drink was 4-5 days ago. He denies history of EtOH withdrawal -Monitor for EtOH withdrawal (6) Hypertension: Plan: Elevated blood pressure in the ER, improved with Morphine and PO hydralazine -Continue pain control with Morphine PRN -Continue Atenolol -Monitor (7) Esophageal reflux: Plan: Chronic. Stable -Protonix 40mg po daily Ppx - low risk for DVT Code - Full Dipso - Admit to medical Admission and Anticipated Discharge Date Admission Date: June 16, 2023 Subjective Patient resting. No new complaints. Review of Systems Review of Systems: All systems reviewed & are unremarkable except as noted in HPI & below Physical Exam Physical Exam: General: patient ill in appearance HEENT: NC/AT, PERRL, EOMI Heart: +S1/S2, regular, no m/r/g Lungs: equal air entry bilaterally, decrease breath sounds Abd: +BS, soft, NT/ND, no masses/organomegaly/ascites Ext: warm, 2+ pulses in UE/LE bilaterally Neuro: nonfocal, patient AA&O x 4 Results & Data Results & Data Vital Signs (Past 12 Hours) Vital Signs Temp Pulse Pulse Resp BP Pulse Ox O2 Del Method 06/18/23 23:05 Room Air 06/18/23 21:44 37.0 C 98 H 22 137/90 92 Room Air 06/18/23 15:28 36.7 C 100 H 20 127/84 91 Room Air PG Care Time/CCT Total # of Minutes Spent Total Time Spent with Patient: Total time spent is greater than 50% in coordination of care (as documented) at patient's floor/unit and/or counseling patient: Coding Level of Care Code 16632 SUB INP/OBS CARE 2/35MIN Diagnoses Influenza A J10.1 Closed rib fracture S22.49XA Encounter type: initial encounter Laterality: unspecified laterality Rib fracture type: multiple ribs Asthma J45.909 Depression with anxiety F41.8 Regular alcohol consumption Z78.9 Hypertension I10 Esophageal reflux K21.9 (2) Closed rib fracture Encounter type: initial encounter Laterality: unspecified laterality Rib fracture type: multiple ribs Qualified Code(s): S22.49XA - Multiple fractures of ribs, unspecified side, initial encounter for closed fracture
--- NOTE | 2023-06-19 08:25 | Hospitalist Progress Note ---
Date of Service June 19, 2023 Assessment & Plan (1) Influenza A: Plan: Patient with Influenza A. Acute symptoms began on 06/14/23. Patient currently afebrile, hypoxia resolved Do not strongly suspect acute bacterial PNA - rather suspect symptoms from new Influenza A infection with some splinting from rib fracture. WBC and procalcitonin are negative. acute hypoxic respiratory failure on admission requiring supplemental O2. Sats of 86% - no home O2 use -Continue isolation precautions -Tamiflu 75mg po BID (2) Closed rib fracture: Plan: Patient with rib fracture - right 6th and 7th - likely secondary to coughing. He does appear to be splinting due to pain, short/shallow breaths. Bibasilar infiltrates vs atelectasis. -Admit to medical -Pain control with Morphine PRN -Tylenol PRN -Incentive spirometry -Continue supplemental O2 as needed (3) Asthma: Plan: Patient with diffuse wheezing. Solumedrol given in ER improverd now stopped steroids -Fluticasone/Vilanterol daily -Albuterol PRN -Tessalon TID PRN -Guaifenesin 1200mg po BID (4) Depression with anxiety: Plan: Chronic -Continue Sertraline 100mg po daily (5) Regular alcohol consumption: Plan: Patient reports drinking a 6 pack of beer q daily routinely - last drink was 4-5 days ago. He denies history of EtOH withdrawal -Monitor for EtOH withdrawal (6) Hypertension: Plan: Elevated blood pressure in the ER, improved with Morphine and PO hydralazine -Continue pain control with Morphine PRN -Continue Atenolol (7) Esophageal reflux: Plan: Chronic. Stable -Protonix 40mg po daily Ppx - low risk for DVT Code - Full Dipso - Admit to medical Admission and Anticipated Discharge Date Admission Date: June 16, 2023 Results & Data Results & Data Vital Signs (Past 12 Hours) Vital Signs Temp Pulse Resp BP Pulse Ox O2 Del Method 06/19/23 07:47 99.0 F 91 H 16 116/65 96 Room Air 06/19/23 07:20 Room Air 06/18/23 23:05 Room Air 06/18/23 21:44 98.6 F 98 H 22 137/90 92 Room Air PG Care Time/CCT Total # of Minutes Spent Total Time Spent with Patient: Total time spent is greater than 50% in coordination of care (as documented) at patient's floor/unit and/or counseling patient: Coding Diagnoses Influenza A J10.1 Closed rib fracture S22.49XA Encounter type: initial encounter Laterality: unspecified laterality Rib fracture type: multiple ribs Asthma J45.909 Depression with anxiety F41.8 Regular alcohol consumption Z78.9 Hypertension I10 Esophageal reflux K21.9 (2) Closed rib fracture Encounter type: initial encounter Laterality: unspecified laterality Rib fracture type: multiple ribs Qualified Code(s): S22.49XA - Multiple fractures of ribs, unspecified side, initial encounter for closed fracture
[2023-06-19] MEDS: ENOXAPARIN INJ 30 MG/0.3 ML SYR SQ SCH (10:04)
--- NOTE | 2023-06-19 16:31 | Discharge Summary ---
Date of Service June 19, 2023 Admission HPI Per Admitting Provider Ifeanyi Lowery is a 32yo male with history of Asthma, HTN, GERD presenting with ongoing cough and SOB. Patient was recently admitted to [facility] from 05/23/23 - 05/27/23 with RLL pneumonia which was treated with Ceftriaxone and Azithromycin. Also with rib fracture secondary to coughing. Patient was discharged on antibiotics and completed his course without difficulty and reports that he was starting to feel better. He returns to the ER tonight with return of fever, chills and cough as well as worsening right sided pain and shortness of breath. Symptoms ongoing since Friday06/14/23. Family has been ill with similar symptoms. Patient with headache, body aches, fever, chills, cough, SOB, right sided pleuritic chest pain as well as nausea and some diarrhea on 06/14. He denies chest pain, palpitations or abdominal pain. No rash. No urinary complaints. He has been using his Albuterol inhaler at home with some relief. Mother reports that they just picked up his Symbicort controller medication today but have not yet taken it. In the ER patient hypoxic at 86% on room air. He was placed on supplemental O2 - now 96% on 2L NC. ER Course: NSS Solumedrol Albuterol Docxycycline Cefepime Morphine 6mg IV Oseltamivir 75mg po Morphine 4mg IV Hydralazine 10mg PO Principal Diagnosis influenza A right 6,7 rib fractures Discharge Exam lungs with some basilar rales consistent with atelectasis, some splinting Discharge Data Allergies Allergy/AdvReac Type Severity Reaction Status Date / Time No Known Allergies Allergy Verified 06/16/23 18:02 Consultations 06/16/23 20:08 ED Decision to Admit Stat Ordered Studies Chest CT 06/16/23 17:29 Exam(s): CT CHEST With Contrast IV Amt: 93ML OF OPTIRAY 320 EXAM: CT Chest With Intravenous Contrast CLINICAL HISTORY: Reason for exam: Recent pneumonia, rib pain. TECHNIQUE: Axial computed tomography images of the chest with intravenous contrast. CTDI is 28.14 mGy and DLP is 951.93 mGy-cm. Automated exposure control was utilized for the study. A dose lowering technique was utilized adhering to the principles of ALARA. CONTRAST: Patient received 93ML OF OPTIRAY 320 of IV contrast COMPARISON: No relevant prior studies available. FINDINGS: Lungs: Airspace consolidation at the lung bases, concerning for mild pneumonia versus atelectasis. Trace bilateral pleural effusions. No mass. Pleural space: See above. Heart: Unremarkable. No cardiomegaly. No significant pericardial effusion. No significant coronary artery calcifications. Bones/joints: No dislocation. Fractures of the RIGHT sixth and seventh ribs. Soft tissues: Unremarkable. Vasculature: Unremarkable. No thoracic aortic aneurysm. Lymph nodes: Unremarkable. No enlarged lymph nodes. Liver: Hepatic steatosis. IMPRESSION: Fractures of the RIGHT sixth and seventh ribs. Mild airspace consolidation at the lung bases, concerning for mild pneumonia versus atelectasis. Trace bilateral pleural effusions. Electronically signed by: Mynor Valladares MD 06/16/23 19:58 PM Hospital Course (1) Influenza A: Patient with Influenza A. Acute symptoms began on 06/14/23. Patient currently afebrile, hypoxia resolved -Tamiflu 75mg po BID complete 5 days (2) Closed rib fracture: Patient with rib fracture - right 6th and 7th - likely secondary to coughing. -Tylenol tid scheduled for a week topical otc lidoderm, and Rx ultram -Incentive spirometry use reinforced after discharge (3) Asthma: wheezing. resolved -Fluticasone/Vilanterol daily -Albuterol PRN (4) Depression with anxiety: Chronic -Continue Sertraline 100mg po daily (5) Regular alcohol consumption: Patient reports drinking a 6 pack of beer q daily routinely - last drink was 4-5 days ago. He denies history of EtOH withdrawal -no signs of EtOH withdrawal (6) Hypertension: -Continue Atenolol (7) Esophageal reflux: Chronic. Stable -Protonix 40mg po daily Total Time Total Time Spent Total Time Spent (In Minutes): It required greater than 30 minutes to prepare this patient for discharge. Discharge Plan Discharge Items Patient Disposition: Home - Self-Care Reason For Visit: SOB Discharge Diagnosis: rib fractures influenza A Activity: Per Instructions section Activity Comment: slowly increase activity Non-emergency contact: Primary Care Provider Call non-emergency contact if: your symptoms worsen Follow-up/Referrals: Clemente Cui MD [Primary Care Provider] - 06/26/23 3:00 pm (with Genaro Hendricks PA-C.) Diet: Regular Addtl Attending Provider Instructions: please continue to use your incentive spirometry at least 4 times a day use Tylenol three times a day 1000 mg for at least a week consider using topical lidocaine patches to painful ribs, you can them over the counter use tramadol carefully, and watch for constipation see your family doctor in one week Pending Studies at Discharge: No Stand-Alone Forms: My [facility], Smoking Cessation Medications and DC Order Prescriptions: New tramadol 50 mg Tablet 50 mg PO Q6H PRN (Reason: pain) Qty: 30 0RF oseltamivir [Tamiflu] 75 mg Capsule 75 mg PO BID Qty: 6 0RF Continued omeprazole 40 mg capsule,delayed release(DR/EC) 40 mg PO QPM Qty: 90 1RF Rx Instructions: TAKES IN THE AFTERNOON sertraline 100 mg tablet 100 mg PO QPM Qty: 90 3RF Rx Instructions: TAKES IN THE AFTERNOON budesonide-formoterol [Symbicort] 160-4.5 mcg/actuation HFA aerosol inhaler 2 puff inhalation Q12H Qty: 10.2 11RF Rx Instructions: PER FAMILY "HAS NOT STARTED YET". albuterol sulfate 90 mcg/actuation HFA aerosol inhaler 2 puff inhalation QID PRN (Reason: shortness of breath or wheezing) Qty: 8.5 3RF acetaminophen [Tylenol Extra Strength] 500 mg Tablet 1,000 mg PO Q6H PRN (Reason: Pain) ibuprofen 200 mg Tablet 400 mg PO Q6H PRN (Reason: Pain) benzonatate 100 mg Capsule 100 mg PO TID PRN (Reason: cough) Qty: 20 0RF atenolol 25 mg tablet 25 mg PO QPM Rx Instructions: TAKES IN THE AFTERNOON ergocalciferol (vitamin D2) [Vitamin D2] 1,250 mcg (50,000 unit) capsule 50,000 unit PO WK Rx Instructions: SUNDAYS Discharge Orders: Discharge Order (Routine); Ordered 06/19/23 Ordered By: Franko Finney Admission Data Admit Date/Time: 06/16/23 21:05 Attending Provider: Franko Finney Admit Provider: Cora Butler Primary Care Provider: Clemente Cui Other Providers: Cora Butler Coding Level of Care Code 80049 INP/OBS DISCH >30 MIN Diagnoses Influenza A J10.1 Closed rib fracture S22.49XA Encounter type: initial encounter Laterality: unspecified laterality Rib fracture type: multiple ribs Asthma J45.909 Depression with anxiety F41.8 Regular alcohol consumption Z78.9 Hypertension I10 Esophageal reflux K21.9
== END 2023-06-19 18:01 | disposition home or self-care (01) | DRG 193 ==
LOC: ED 17:12 → SUATTDRO 21:05 → EDINP 21:05 → 3N 23:41